=== PATIENT | male | born 1965 | race Caucasian/White ===

== ENCOUNTER 2017-12-27 13:12 | Emergency (ER) | payer SELFPAY ==
[~2017-12-27] VITALS: Ht 188 cm; Wt 106.5 kg
[~2017-12-27 13:12] MED LIST: CARV3.122 PO; FURO-93 PO; FURO40TA6 PO; HYDR-3240 PO; LISI2.5T PO; LORA-446 PO; POTA10TA31 PO; SPIR25TA3 PO; WARF7.5T6 PO
[2017-12-27 13:20] VITALS: BP 150/100
[2017-12-27] MEDS ORDERED: DIPHENHYDRAMINE 50 MG CAPSULE ONE (13:43)
[2017-12-27] MEDS ORDERED: DIPHENHYDRAMINE 25 MG CAPSULE PO ONE (14:00)
== END 2017-12-27 14:42 | disposition home or self-care (01) ==
LOC: ED 14:20
DX: L20.9 Atopic dermatitis, unspecified (principal); I50.9 Heart failure, unspecified
CPT/HCPCS: 93005; 99283; Q0163

== ENCOUNTER 2018-07-26 09:50 | Emergency (ER) | payer MEDICAID ==
[~2018-07-26] VITALS: Ht 185.4 cm; Wt 98.0 kg
[~2018-07-26 09:50] MED LIST changes: +CAPT12.52 PO; +NITR0.4T SL; +SPIR25TA PO; -SPIR25TA3 PO; +SPIR25TA5 PO; +WARF7.5T46 PO; -WARF7.5T6 PO
[2018-07-26 10:00] VITALS: BP 120/83
[2018-07-26] MEDS ORDERED: FAMOTIDINE 20 MG TABLET ONE (10:25)
[2018-07-26] MEDS ORDERED: FAMOTIDINE 20 MG TABLET PO ONE (10:30)
[2018-07-26 10:32] LABS: BASOPHILS # (AUTO) 0.08 x10^3/uL (0-0.1); BASOPHILS % (AUTO) 1 % (0-1); EOSINOPHILS # (AUTO) 0.24 x10^3/uL (0-0.4); EOSINOPHILS % (AUTO) 3 % (1-7); LYMPHOCYTES # (AUTO) 2.02 x10^3/uL (1-3.4); LYMPHOCYTES % (AUTO) 22 % (22-44); MD NO; MEAN CORPUSCULAR HEMOGLOBIN 31.9 pg (27.5-34.5); MEAN CORPUSCULAR HGB CONC 34.7 g/dL (33.2-36.2); MEAN CORPUSCULAR VOLUME 91.9 fL (81-97); MEAN PLATELET VOLUME 9.5 fL (7.4-10.4); MONOCYTES # (AUTO) 0.82 x10^3/uL (0.2-0.8); MONOCYTES % (AUTO) 9 % (2-9); NEUTROPHILS # (AUTO) 6.09 x10^3/uL (1.8-6.8); NEUTROPHILS % (AUTO) 66 % (42-75); PLATELET COUNT 225 x10^3/uL (130-400); RED BLOOD COUNT 5.72 x10^6/uL (4.38-5.82); RED CELL DISTRIBUTION WIDTH 13.2 % (9.4-14.8)
[2018-07-26 10:44] LABS: ALBUMIN 4.1 g/dL (3.4-5.0); ANION GAP 8 mmol/L (5-15); CALCIUM 8.9 mg/dL (8.5-10.1); CHLORIDE 112 mmol/L (98-107); CREATININE 1.04 mg/dL (0.7-1.3)
[2018-07-26 10:47] LABS: TROPONIN I < 0.015 ng/mL (0.000-0.045)
== END 2018-07-26 11:15 | disposition home or self-care (01) ==
LOC: ED 11:08
DX: L20.84 Intrinsic (allergic) eczema (principal); I50.9 Heart failure, unspecified; F17.200 Nicotine dependence, unspecified, uncomplicated
CPT/HCPCS: 36415; 71045; 80048; 82040; 83880; 84484; 85025; 93005; 99285; J7512; Q0177

== ENCOUNTER 2018-11-01 05:14 | Inpatient (IN) | payer MEDICAID ==
[~2018-11-01] VITALS: Ht 188 cm; Wt 98.3 kg
[2018-11-01] MEDS ORDERED: SODIUM CHLORIDE FLUSH 10ML SYR IVF ONE (05:30)
[2018-11-01] MEDS ORDERED: morphine SULFATE 10 MG/ML, 1ML IVPush ONE (05:30)
--- NOTE | 2018-11-01 05:32 | NUR ---
PT IN HOSPITAL GOWN. PT HAS ESTABLISHED IV ACCESS PER EMS. PT COMES IN WITH C/O CHEST PAIN IN LEFT CHEST WITH RADIATION TO LEFT SHOULDER. PT ON CARDIAC AND VITALS MONITORS. BILAT BEDRAILS UP. WILL CONTINUE TO MONITOR
[2018-11-01] MEDS ORDERED: METOPROLOL 1 MG/ML, 5ML ONE (05:36)
[2018-11-01] MEDS ORDERED: MORPHINE SULFATE 4 MG/ML, 1ML ONE (05:36)
[2018-11-01 05:55] LABS: BASOPHILS # (AUTO) 0.04 x10^3/uL (0-0.1); BASOPHILS % (AUTO) 0 % (0-1); EOSINOPHILS # (AUTO) 0.14 x10^3/uL (0-0.4); EOSINOPHILS % (AUTO) 1 % (1-7); LYMPHOCYTES # (AUTO) 2.36 x10^3/uL (1-3.4); LYMPHOCYTES % (AUTO) 22 % (22-44); MD NO; MEAN CORPUSCULAR HEMOGLOBIN 33.1 pg (27.5-34.5); MEAN CORPUSCULAR HGB CONC 34.4 g/dL (33.2-36.2); MEAN CORPUSCULAR VOLUME 96.2 fL (81-97); MEAN PLATELET VOLUME 9.1 fL (7.4-10.4); MONOCYTES % (AUTO) 9 % (2-9); NEUTROPHILS # (AUTO) 7.36 x10^3/uL (1.8-6.8); NEUTROPHILS % (AUTO) 68 % (42-75); PLATELET COUNT 186 x10^3/uL (130-400); RED BLOOD COUNT 5.25 x10^6/uL (4.38-5.82); RED CELL DISTRIBUTION WIDTH 15.8 % (9.4-14.8)
[2018-11-01] MEDS ORDERED: METOPROLOL 1 MG/ML, 5ML IVPush PRN (06:00)
[2018-11-01 06:07] LABS: ALBUMIN 3.5 g/dL (3.4-5.0); ANION GAP 7 mmol/L (5-15); CALCIUM 8.9 mg/dL (8.5-10.1); CHLORIDE 110 mmol/L (98-107)
[2018-11-01 06:12] LABS: ALANINE AMINOTRANSFERASE 38 U/L (12-78); ALKALINE PHOSPHATASE 51 U/L (45-117); BILIRUBIN,TOTAL 1.5 mg/dL (0.2-1.0); CREATININE 0.83 mg/dL (0.7-1.3); TOTAL PROTEIN 6.4 g/dL (6.4-8.2); TROPONIN I < 0.015 ng/mL (0.000-0.045)
[2018-11-01 06:13] LABS: D-DIMER 0.2 ug/mlFEU (0.00-0.52); INTERNATIONAL NORMALIZED RATIO 1.07 (0.93-1.1); PROTHROMBIN TIME 11.3 Seconds (9.6-11.5)
--- NOTE | 2018-11-01 06:53 | NUR ---
REPORT TO PRATIK BARRIOS
--- NOTE | 2018-11-01 06:54 | NUR ---
RECEIVED REPORT FROM [email or web address]. PT UPRIGHT ON GURNEY AWAKE & CALM, RESPONDS APPROP TO STAFF, NAD, COMFORT MEASURES PROVIDED, CALL LIGHT WITHIN REACH,
--- NOTE | 2018-11-01 06:57 | NUR ---
REPORT GIVEN TO JAS BARRIOS FOR 5TH FLOOR ROOM 509.
[2018-11-01] MEDS ORDERED: ENOXAPARIN 100 MG/ML SQ ONE (07:00)
[2018-11-01 07:41] VITALS: BP 110/86
[2018-11-01] MEDS ORDERED: HEPARIN 5,000 UNITS/ML, 1ML SQ SCH (08:00)
[2018-11-01] MEDS ORDERED: NITROGLYCERIN 0.4 MG/SPRAY SL PRN (08:00)
[2018-11-01] MEDS ORDERED: ONDANSETRON 2MG/ML, 2ML IVPush PRN (08:00)
[2018-11-01] MEDS ORDERED: DOCUSATE 100 MG CAPSULE PO PRN ×2 (08:00→17:30)
[2018-11-01] MEDS ORDERED: NITROGLYCERIN 0.4 MG BOTTLE (25 TABS) SL PRN (08:00)
[2018-11-01] MEDS ORDERED: ONDANSETRON ODT 4 MG PO PRN (08:00)
[2018-11-01] MEDS ORDERED: hydrALAzine 20 MG/ML, 1ML IVPush PRN (08:00)
[2018-11-01 08:35] LABS: FREE T4 (FREE THYROXINE) 1.15 ng/dL (0.76-1.46); TROPONIN I < 0.015 ng/mL (0.000-0.045)
[2018-11-01] MEDS ORDERED: CAPT12.52 PO (08:38)
[2018-11-01] MEDS ORDERED: Enoxaparin 1 mg/kg protocol SQ SCH (09:30)
[2018-11-01] MEDS: CARVEDILOL 3.125 MG TABLET PO SCH ×2 (09:43→15:21)
[2018-11-01] MEDS ORDERED: ENOXAPARIN 100 MG/ML SQ SCH ×2 (10:00→21:30)
[2018-11-01] MEDS: ACETAMINOPHEN 325 MG TABLET PO PRN (10:20)
[2018-11-01 10:41] LABS: MICROSCOPIC AUTO
[2018-11-01 10:42] LABS: CULTURE INDICATED? NO
[2018-11-01 10:52] LABS: AMPHETAMINE SCREEN, URINE Negative (Negative); BARBITURATE SCREEN, URINE Negative (Negative); BENZODIAZEPINE SCREEN, URINE Negative (Negative); CANNABINOID SCREEN, URINE Positive (Negative); COCAINE SCREEN, URINE Negative (Negative); METHADONE SCREEN, URINE Negative (Negative); OPIATE SCREEN, URINE Positive (Negative)
[2018-11-01] MEDS: MORPHINE SULFATE 4 MG/ML, 1ML IVPush PRN ×2 (12:46→17:09)
[2018-11-01 13:10] VITALS: BP 99/73
[2018-11-01 13:55] LABS: TROPONIN I < 0.015 ng/mL (0.000-0.045)
[2018-11-01 15:00] VITALS: BP 104/58
[2018-11-01] MEDS: VERAPAMIL 2.5 MG/ML, 2ML IVPush PRN ×2 (15:26→16:38)
[2018-11-01] MEDS ORDERED: KETOROLAC 30 MG/1 ML IVPush SCH (16:00)
[2018-11-01 16:05] LABS: TROPONIN I < 0.015 ng/mL (0.000-0.045)
[2018-11-01] MEDS: KETOROLAC 30 MG/1 ML IVPush PRN ×2 (16:11→22:11)
[2018-11-01] MEDS ORDERED: OMNIPAQUE 350 MG/ML, 100ML BOTTLE ONE (17:01)
[2018-11-01] MEDS ORDERED: MAALOX/HYOSCYAMINE/LIDOCAINE 45 ML BTL PO ONE (17:30)
[2018-11-01] MEDS ORDERED: LORazepam 2 MG/ML, 1ML IV PRN ×5 (17:30)
[2018-11-01] MEDS ORDERED: LORazepam 0.5MG TABLET PO PRN (17:30)
[2018-11-01] MEDS ORDERED: IBUPROFEN 600 MG TABLET PO PRN (17:30)
[2018-11-01] MEDS ORDERED: ALUMINUM/MAG/SIMETHICONE 30 ML UDC PO PRN (17:30)
[2018-11-01] MEDS ORDERED: LORazepam 1MG TABLET PO PRN ×4 (17:30)
[2018-11-01] MEDS ORDERED: ONDANSETRON 2MG/ML, 2ML IV PRN (17:30)
[2018-11-01] MEDS: SUCRALFATE 1 GM/10 ML UDC PO SCH ×2 (17:44→20:01)
[2018-11-01] MEDS: OXYcodone/APAP 10/325MG TABLET PO PRN (17:44)
[2018-11-01 20:00] VITALS: BP 119/83
[2018-11-01] MEDS: LIDODERM 5% PATCH TD PRN (20:00)
[2018-11-01] MEDS: CAPTOPRIL 12.5 MG TABLET PO SCH (20:01)
[2018-11-02 00:45] VITALS: BP 100/69
[2018-11-02] MEDS: OXYcodone/APAP 10/325MG TABLET PO PRN ×2 (01:00→08:33)
[2018-11-02 05:02] LABS: BASOPHILS # (AUTO) 0.05 x10^3/uL (0-0.1); BASOPHILS % (AUTO) 1 % (0-1); EOSINOPHILS # (AUTO) 0.08 x10^3/uL (0-0.4); EOSINOPHILS % (AUTO) 1 % (1-7); LYMPHOCYTES # (AUTO) 2.17 x10^3/uL (1-3.4); LYMPHOCYTES % (AUTO) 20 % (22-44); MD NO; MEAN CORPUSCULAR HEMOGLOBIN 32.8 pg (27.5-34.5); MEAN CORPUSCULAR HGB CONC 34.4 g/dL (33.2-36.2); MEAN CORPUSCULAR VOLUME 95.3 fL (81-97); MEAN PLATELET VOLUME 9.6 fL (7.4-10.4); MONOCYTES # (AUTO) 1.05 x10^3/uL (0.2-0.8); MONOCYTES % (AUTO) 10 % (2-9); NEUTROPHILS # (AUTO) 7.54 x10^3/uL (1.8-6.8); NEUTROPHILS % (AUTO) 69 % (42-75); PLATELET COUNT 170 x10^3/uL (130-400); RED BLOOD COUNT 5.12 x10^6/uL (4.38-5.82); RED CELL DISTRIBUTION WIDTH 15.3 % (9.4-14.8)
[2018-11-02 05:15] LABS: ANION GAP 8 mmol/L (5-15); CALCIUM 8.4 mg/dL (8.5-10.1); CHLORIDE 107 mmol/L (98-107)
[2018-11-02 05:17] LABS: CREATININE 0.95 mg/dL (0.7-1.3)
[2018-11-02] MEDS: KETOROLAC 30 MG/1 ML IVPush PRN (06:25)
[2018-11-02 08:13] VITALS: BP 95/66
[2018-11-02] MEDS: SUCRALFATE 1 GM/10 ML UDC PO SCH ×4 (08:32→20:46)
[2018-11-02] MEDS: MULTIVITAMINS/MINERALS TABLET PO SCH (08:33)
[2018-11-02] MEDS: PANTOPROZOLE 40MG TABLET PO SCH (08:33)
[2018-11-02] MEDS: CARVEDILOL 3.125 MG TABLET PO SCH ×2 (08:33→17:47)
[2018-11-02] MEDS: SPIRONOLACTONE 25 MG TABLET PO SCH (08:33)
[2018-11-02] MEDS: FUROSEMIDE 40 MG TABLET PO SCH (08:35)
[2018-11-02] MEDS: APIXABAN 5 MG TABLET PO SCH ×2 (08:46→20:46)
[2018-11-02] MEDS: CAPTOPRIL 12.5 MG TABLET PO SCH ×2 (08:47→20:47)
[2018-11-02] MEDS ORDERED: PROPOFOL 10 MG/ML, 20ML ONE (12:14)
[2018-11-02] MEDS: DIGOXIN 0.125 MG TABLET PO SCH (13:16)
[2018-11-02 14:09] VITALS: BP 92/63
[2018-11-02] MEDS ORDERED: SODIUM CHLORIDE 0.9%, 250ML IVBOLUS ONE (15:30)
[2018-11-02] MEDS: IBUPROFEN 800 MG TABLET PO PRN ×2 (15:37→20:46)
[2018-11-02 19:32] VITALS: BP 107/75
[2018-11-02] MEDS: ACETAMINOPHEN 325 MG TABLET PO PRN (20:46)
[2018-11-03 01:15] VITALS: BP 96/65
[2018-11-03] MEDS: LIDODERM 5% PATCH TD PRN (05:12)
[2018-11-03] MEDS: IBUPROFEN 800 MG TABLET PO PRN ×2 (05:15→21:49)
[2018-11-03] MEDS: PANTOPROZOLE 40MG TABLET PO SCH (05:15)
[2018-11-03] MEDS: ACETAMINOPHEN 325 MG TABLET PO PRN ×2 (05:15→21:49)
[2018-11-03 07:40] VITALS: BP 94/63
[2018-11-03] MEDS: SUCRALFATE 1 GM/10 ML UDC PO SCH ×4 (08:31→21:48)
[2018-11-03] MEDS: CARVEDILOL 3.125 MG TABLET PO SCH ×2 (08:32→18:02)
[2018-11-03] MEDS: APIXABAN 5 MG TABLET PO SCH ×2 (08:32→21:49)
[2018-11-03] MEDS: MULTIVITAMINS/MINERALS TABLET PO SCH (08:32)
[2018-11-03] MEDS: DIGOXIN 0.125 MG TABLET PO SCH (08:33)
[2018-11-03] MEDS: SPIRONOLACTONE 25 MG TABLET PO SCH (08:33)
[2018-11-03] MEDS: FUROSEMIDE 40 MG TABLET PO SCH (08:33)
[2018-11-03] MEDS: CAPTOPRIL 12.5 MG TABLET PO SCH ×2 (09:00→21:50)
[2018-11-03 10:07] LABS: ANION GAP 6 mmol/L (5-15); CALCIUM 8.7 mg/dL (8.5-10.1); CHLORIDE 110 mmol/L (98-107); CREATININE 1.04 mg/dL (0.7-1.3)
[2018-11-03 15:28] VITALS: BP 101/76
[2018-11-03 18:03] VITALS: BP 124/89
[2018-11-03] MEDS: VERAPAMIL 2.5 MG/ML, 2ML IVPush PRN (18:24)
[2018-11-03 19:29] VITALS: BP 110/85
[2018-11-04 01:36] VITALS: BP 102/60
[2018-11-04 06:38] VITALS: BP 105/70
[2018-11-04] MEDS: CARVEDILOL 3.125 MG TABLET PO SCH (06:38)
[2018-11-04] MEDS: PANTOPROZOLE 40MG TABLET PO SCH (06:38)
[2018-11-04] MEDS: SPIRONOLACTONE 25 MG TABLET PO SCH (08:27)
[2018-11-04] MEDS: SUCRALFATE 1 GM/10 ML UDC PO SCH ×2 (08:27→12:44)
[2018-11-04] MEDS: APIXABAN 5 MG TABLET PO SCH (08:28)
[2018-11-04] MEDS: DIGOXIN 0.125 MG TABLET PO SCH (08:28)
[2018-11-04] MEDS: CAPTOPRIL 12.5 MG TABLET PO SCH (08:28)
[2018-11-04] MEDS: FUROSEMIDE 40 MG TABLET PO SCH (08:29)
[2018-11-04] MEDS: MULTIVITAMINS/MINERALS TABLET PO SCH (08:30)
[2018-11-04] MEDS: IBUPROFEN 800 MG TABLET PO PRN (09:04)
[2018-11-04] MEDS: ACETAMINOPHEN 325 MG TABLET PO PRN (09:05)
[2018-11-04 09:26] VITALS: BP 110/78
[2018-11-04] MEDS ORDERED: SUCR1ORA5 PO (13:41)
[2018-11-04] MEDS ORDERED: CARV6.2512 PO (13:41)
[2018-11-04] MEDS ORDERED: PANT40TA5 PO (13:41)
[2018-11-04] MEDS ORDERED: ONDA4TAB13 PO (13:41)
[2018-11-04] MEDS ORDERED: NITR0.4T SL (13:41)
[2018-11-04] MEDS ORDERED: FURO40TA6 PO (13:41)
[2018-11-04] MEDS ORDERED: DOCU-131 PO (13:41)
[2018-11-04] MEDS ORDERED: CAPT12.52 PO (13:41)
[2018-11-04] MEDS ORDERED: SPIR25TA PO (13:41)
[2018-11-04] MEDS ORDERED: LIDO700A20 TD (13:41)
[2018-11-04] MEDS ORDERED: APIX5TAB PO (13:41)
[2018-11-04] MEDS ORDERED: IBUP-1223 PO (13:41)
[2018-11-04] MEDS ORDERED: CARVEDILOL 6.25 MG TABLET PO SCH (18:00)
== END 2018-11-04 17:08 | disposition home or self-care (01) | DRG 308 ==
LOC: ED 06:22 → EDIP 06:28 → 5SO 07:13 → DCLOUNGE 11-04 16:32
PROVIDERS: ADMIT Family Medicine; ATTEND Internal Medicine
PROC: 5A2204Z Restoration of Cardiac Rhythm, Single (ICD-10-PCS; principal; 2018-11-03)
DX: I48.91 Unspecified atrial fibrillation (principal); I50.23 Acute on chronic systolic (congestive) heart failure; F10.239 Alcohol dependence with withdrawal, unspecified; F12.90 Cannabis use, unspecified, uncomplicated; F17.210 Nicotine dependence, cigarettes, uncomplicated; I95.9 Hypotension, unspecified; K21.9 Gastro-esophageal reflux disease without esophagitis; I51.3 Intracardiac thrombosis, not elsewhere classified; I42.6 Alcoholic cardiomyopathy; Z79.01 Long term (current) use of anticoagulants; Z79.899 Other long term (current) drug therapy; Z80.3 Family history of malignant neoplasm of breast
CPT/HCPCS: 36415; 71045; 71275; 80048; 80053; 80307; 81001; 83735; 83880; 84439; 84443; 84484; 85025; 85379; 85610; 85730; 93005; 93306; 93312; 93321; 93325; 96374; 96375; 99285; G0378; J1650; J1885; J2405; J2704; Q9967; J2270; J7050

== ENCOUNTER 2018-11-29 11:53 | Outpatient (CLI) | payer MEDICAID ==
[~2018-11-29 11:53] MED LIST changes: +APIX5TAB PO; +CARV6.2512 PO; +DOCU-131 PO; +IBUP-1223 PO; +LIDO700A20 TD; +ONDA4TAB13 PO; +PANT40TA5 PO; +SUCR1ORA5 PO
[2018-11-29] MEDS ORDERED: REGADENOSON 0.4 MG/5 ML SYRINGE ONE (12:33)
== END 2018-11-29 23:59 | disposition home or self-care (01) ==
LOC: CFH 11:53
PROVIDERS: ATTEND Nurse Practitioner Family
DX: I50.23 Acute on chronic systolic (congestive) heart failure (principal); R07.9 Chest pain, unspecified
CPT/HCPCS: 78452; A9502; J2785

== ENCOUNTER 2018-12-03 05:54 | Day surgery (SDC) | payer MEDICAID, MEDICARE ==
[~2018-12-03] VITALS: Ht 188 cm; Wt 97.3 kg
[2018-12-03] MEDS ORDERED: HYDR28.423 TP (06:32)
[2018-12-03 06:35] VITALS: BP 83/65
[2018-12-03 06:47] LABS: BASOPHILS # (AUTO) 0.09 x10^3/uL (0-0.1); BASOPHILS % (AUTO) 1 % (0-1); EOSINOPHILS # (AUTO) 0.37 x10^3/uL (0-0.4); EOSINOPHILS % (AUTO) 3 % (1-7); LYMPHOCYTES # (AUTO) 2.72 x10^3/uL (1-3.4); LYMPHOCYTES % (AUTO) 24 % (22-44); MD NO; MEAN CORPUSCULAR HEMOGLOBIN 32.5 pg (27.5-34.5); MEAN CORPUSCULAR VOLUME 95.6 fL (81-97); MEAN PLATELET VOLUME 9.5 fL (7.4-10.4); MONOCYTES # (AUTO) 0.89 x10^3/uL (0.2-0.8); MONOCYTES % (AUTO) 8 % (2-9); NEUTROPHILS # (AUTO) 7.11 x10^3/uL (1.8-6.8); NEUTROPHILS % (AUTO) 64 % (42-75); PLATELET COUNT 179 x10^3/uL (130-400); RED BLOOD COUNT 5.36 x10^6/uL (4.38-5.82); RED CELL DISTRIBUTION WIDTH 13.8 % (9.4-14.8)
[2018-12-03 06:52] LABS: ANION GAP 6 mmol/L (5-15); CALCIUM 8.6 mg/dL (8.5-10.1); CHLORIDE 114 mmol/L (98-107); CREATININE 1.05 mg/dL (0.7-1.3)
[2018-12-03] MEDS ORDERED: ONDANSETRON 2MG/ML, 2ML ONE (07:17)
[2018-12-03] MEDS ORDERED: ONDANSETRON 2MG/ML, 2ML IVPush ONE (07:30)
[2018-12-03] MEDS ORDERED: PROPOFOL 10 MG/ML, 20ML ONE (07:31)
[2018-12-03] MEDS ORDERED: DIPHENHYDRAMINE 50 MG/ML, 1ML ONE (08:04)
[2018-12-03] MEDS ORDERED: DIPHENHYDRAMINE 50 MG/ML, 1ML IVPush PRN (08:30)
[2018-12-03] MEDS ORDERED: DEXAMETHASONE 4 MG/ML, 1ML ONE (08:37)
[2018-12-03] MEDS ORDERED: FAMOTIDINE 20 MG/2 ML IVPush ONE (09:00)
[2018-12-03] MEDS ORDERED: DEXAMETHASONE 4 MG/ML, 1ML IVPush ONE (09:00)
[2018-12-03] MEDS ORDERED: LORazepam 2 MG/ML, 1ML ONE (09:09)
[2018-12-03] MEDS: LORazepam 2 MG/ML, 1ML IVPush PRN ×2 (09:13→09:29)
[2018-12-03] MEDS ORDERED: FUROSEMIDE 40 MG/4 ML ONE (09:26)
[2018-12-03] MEDS ORDERED: FUROSEMIDE 20 MG/2 ML IV ONE (09:30)
== END 2018-12-03 12:37 | disposition home or self-care (01) ==
LOC: CACL 05:54
PROVIDERS: ATTEND Internal Medicine Cardiovascular Disease
DX: I48.91 Unspecified atrial fibrillation (principal); I42.9 Cardiomyopathy, unspecified
CPT/HCPCS: 36415; 71045; 80048; 85025; 92960; J1100; J1200; J1940; J2060; J2405; J2704; J3490

== ENCOUNTER 2018-12-05 05:58 | Inpatient (IN) | payer MEDICARE, MEDICAID ==
[~2018-12-05] VITALS: Ht 188 cm; Wt 97.7 kg
[~2018-12-05 05:58] MED LIST changes: +HYDR28.423 TP
--- NOTE | 2018-12-05 06:46 | NUR ---
PT HERE FOR 10/10 CHEST PAIN THAT STARTED LAST NIGHT. PT HAS HX OF AFIB AND CHF. PT SAYS PAIN IS CONSTANT AND NOT RELEIVED BY ANYTHING. PT ALSO COMPLAINING OF SOB. PT PLACED ON 2 L O2 FOR COMFORT. CALL LIGHT IN REACH.
--- NOTE | 2018-12-05 06:55 | NUR ---
REPORT RECEIVED, CARE ASSUMED. PT SITTING UP ON FARAZ, SR PER MONITOR, AUTO BP AND PULSE OX IN PLACE. PT WITH C/O NAUSEA "DRY HEAVING" PT PROVIDED WITH WARM BLANKET. WAITING FOR ORDERS.
--- NOTE | 2018-12-05 07:31 | NUR ---
PT USING URINAL FREQUENTLY, TOOK HOME MEDS INCLUDING LASIX AT 0500. CONT SR PER MONITOR. PORTABLE CXR IN PROCESS. CONT TO MONITOR.
[2018-12-05 07:53] LABS: MEAN CORPUSCULAR HEMOGLOBIN 32.3 pg (27.5-34.5); MEAN CORPUSCULAR HGB CONC 33.9 g/dL (33.2-36.2); MEAN CORPUSCULAR VOLUME 95.4 fL (81-97); MEAN PLATELET VOLUME 9.1 fL (7.4-10.4); PLATELET COUNT 173 x10^3/uL (130-400); RED BLOOD COUNT 5.17 x10^6/uL (4.38-5.82); RED CELL DISTRIBUTION WIDTH 13.4 % (9.4-14.8)
[2018-12-05 08:00] LABS: ALANINE AMINOTRANSFERASE 40 U/L (12-78); ANION GAP 4 mmol/L (5-15); CALCIUM 8.7 mg/dL (8.5-10.1); CHLORIDE 106 mmol/L (98-107); CREATININE 1.24 mg/dL (0.7-1.3)
[2018-12-05 08:04] LABS: ALKALINE PHOSPHATASE 55 U/L (45-117); BILIRUBIN,TOTAL 2.8 mg/dL (0.2-1.0); TOTAL PROTEIN 6.6 g/dL (6.4-8.2); TROPONIN I < 0.015 ng/mL (0.000-0.045)
[2018-12-05 08:16] LABS: BASOPHILS # (AUTO) 0.07 x10^3/uL (0-0.1); BASOPHILS % (AUTO) 1 % (0-1); EOSINOPHILS # (AUTO) 0.14 x10^3/uL (0-0.4); EOSINOPHILS % (AUTO) 1 % (1-7); LYMPHOCYTES # (AUTO) 1.76 x10^3/uL (1-3.4); LYMPHOCYTES % (AUTO) 12 % (22-44); MD SCAN; MONOCYTES # (AUTO) 1.14 x10^3/uL (0.2-0.8); MONOCYTES % (AUTO) 8 % (2-9); NEUTROPHILS # (AUTO) 11.42 x10^3/uL (1.8-6.8); NEUTROPHILS % (AUTO) 79 % (42-75)
[2018-12-05] MEDS ORDERED: FUROSEMIDE 40 MG/4 ML IV ONE (08:30)
[2018-12-05] MEDS ORDERED: FUROSEMIDE 40 MG/4 ML ONE (08:41)
[2018-12-05] MEDS ORDERED: POTASSIUM CHLORIDE 20 MEQ TAB.ER.PRT ONE (08:41)
[2018-12-05] MEDS ORDERED: ONDANSETRON 2MG/ML, 2ML ONE (08:41)
--- NOTE | 2018-12-05 08:56 | NUR ---
REPORT TO MARIO BARRIOS. PT AT BEDSIDE USING URINAL. PRIOR TO IV LASIX, PT HAD UOP OF APPROX 1200.
[2018-12-05] MEDS ORDERED: POTASSIUM CHLORIDE 20 MEQ TAB.ER.PRT PO ONE (09:00)
[2018-12-05] MEDS ORDERED: ONDANSETRON 2MG/ML, 2ML IVPush ONE (09:00)
--- NOTE | 2018-12-05 09:00 | NUR ---
ASSUMED CARE. PT RESTING WITH EYES CLOSED. C/O CONTINUED CP. PT NOTED TO DIURES 1000 ML URINE. CONTINUE TO MONITOR
[2018-12-05 09:08] LABS: D-DIMER < 0.19 ug/mlFEU (0.00-0.52); INTERNATIONAL NORMALIZED RATIO 1.09 (0.93-1.1); PARTIAL THROMBOPLASTIN TIME 29 Seconds (25-31); PROTHROMBIN TIME 11.4 Seconds (9.6-11.5)
[2018-12-05] MEDS ORDERED: HYDROcodone/APAP 5/325 TABLET PO ONE (09:30)
[2018-12-05] MEDS ORDERED: DOCUSATE 100 MG CAPSULE PO PRN (10:00)
[2018-12-05] MEDS ORDERED: NITROGLYCERIN 0.4 MG BOTTLE (25 TABS) SL PRN (10:00)
[2018-12-05] MEDS ORDERED: ONDANSETRON 2MG/ML, 2ML IVPush PRN (10:00)
[2018-12-05] MEDS ORDERED: POLYETHYLENE GLYCOL 17 GM PACKET PO PRN (10:00)
[2018-12-05] MEDS ORDERED: morphine SULFATE 10 MG/ML, 1ML IVPush PRN (10:00)
[2018-12-05] MEDS ORDERED: BISACODYL 10 MG SUPP PR PRN (10:00)
[2018-12-05] MEDS ORDERED: LABETALOL 5MG/ML, 20ML IVPush PRN (10:00)
[2018-12-05] MEDS ORDERED: HYDROCORTISONE CRM 1%, 30GM TP PRN (10:00)
--- NOTE | 2018-12-05 10:43 | NUR ---
RPT TO NATHANAEL RICH TO BE TRANSPORTED
--- NOTE | 2018-12-05 10:52 | NUR ---
ADDTIONAL 700 ML URINE OUTPUT NOTED
[2018-12-05 11:34] VITALS: BP 95/67
[2018-12-05] MEDS: ACETAMINOPHEN 325 MG TABLET PO PRN ×2 (12:53→17:36)
[2018-12-05 13:41] LABS: TROPONIN I < 0.015 ng/mL (0.000-0.045)
[2018-12-05 17:02] VITALS: BP 105/75
[2018-12-05] MEDS: CARVEDILOL 6.25 MG TABLET PO SCH (17:33)
[2018-12-05] MEDS: FUROSEMIDE 40 MG/4 ML IV SCH (17:33)
[2018-12-05] MEDS: POTASSIUM CHLORIDE 20 MEQ TAB.ER.PRT PO SCH (17:33)
[2018-12-05 19:19] LABS: TROPONIN I < 0.015 ng/mL (0.000-0.045)
[2018-12-05 19:53] VITALS: BP 102/68
[2018-12-05] MEDS: SODIUM CHLORIDE FLUSH 10ML SYR IVF SCH (20:40)
[2018-12-05] MEDS: APIXABAN 5 MG TABLET PO SCH (20:41)
[2018-12-05] MEDS: CAPTOPRIL 12.5 MG TABLET PO SCH (20:41)
[2018-12-06 01:15] VITALS: BP 99/64
[2018-12-06 04:56] LABS: BASOPHILS # (AUTO) 0.14 x10^3/uL (0-0.1); BASOPHILS % (AUTO) 1 % (0-1); EOSINOPHILS # (AUTO) 0.12 x10^3/uL (0-0.4); EOSINOPHILS % (AUTO) 1 % (1-7); LYMPHOCYTES # (AUTO) 2.12 x10^3/uL (1-3.4); LYMPHOCYTES % (AUTO) 16 % (22-44); MD NO; MEAN CORPUSCULAR HEMOGLOBIN 32.7 pg (27.5-34.5); MEAN CORPUSCULAR HGB CONC 34.7 g/dL (33.2-36.2); MEAN CORPUSCULAR VOLUME 94.3 fL (81-97); MEAN PLATELET VOLUME 9.8 fL (7.4-10.4); MONOCYTES # (AUTO) 1.28 x10^3/uL (0.2-0.8); MONOCYTES % (AUTO) 10 % (2-9); NEUTROPHILS # (AUTO) 9.53 x10^3/uL (1.8-6.8); NEUTROPHILS % (AUTO) 72 % (42-75); PLATELET COUNT 162 x10^3/uL (130-400); RED BLOOD COUNT 5.47 x10^6/uL (4.38-5.82); RED CELL DISTRIBUTION WIDTH 13.6 % (9.4-14.8)
[2018-12-06 05:10] LABS: ALANINE AMINOTRANSFERASE 31 U/L (12-78); ALBUMIN 3.8 g/dL (3.4-5.0); ANION GAP 7 mmol/L (5-15); CALCIUM 8.7 mg/dL (8.5-10.1); CHLORIDE 108 mmol/L (98-107); CHOLESTEROL, TOTAL 188 mg/dL (140-239); CREATININE 0.96 mg/dL (0.7-1.3)
[2018-12-06 05:12] LABS: ALKALINE PHOSPHATASE 58 U/L (45-117); BILIRUBIN,TOTAL 4.3 mg/dL (0.2-1.0); CHOL/HDL RATIO 4.3; HDL CHOL % 23 % (26-37); HDL CHOLESTEROL (DIRECT) 44 mg/dL (40-60); LDL CHOLESTEROL,CALCULATED 113 mg/dL (54-169); LDL/HDL RATIO 2.6 (0.5-3.0); TOTAL PROTEIN 6.8 g/dL (6.4-8.2); TRIGLYCERIDES 156 mg/dL (50-200); VLDL CHOLESTEROL 31 mg/dL (0-25)
[2018-12-06] MEDS ORDERED: ASPIRIN 325 MG TABLET EC PO SCH (06:00)
[2018-12-06 06:10] VITALS: BP 101/71
[2018-12-06] MEDS: CARVEDILOL 6.25 MG TABLET PO SCH (06:11)
[2018-12-06 07:15] VITALS: BP_SYST 110; BP_SYST 90; BP_DIAS 56; BP_DIAS 75
[2018-12-06] MEDS: FUROSEMIDE 40 MG/4 ML IV SCH (07:41)
[2018-12-06] MEDS: CAPTOPRIL 12.5 MG TABLET PO SCH (07:41)
[2018-12-06] MEDS: APIXABAN 5 MG TABLET PO SCH (07:41)
[2018-12-06] MEDS: POTASSIUM CHLORIDE 20 MEQ TAB.ER.PRT PO SCH (07:41)
[2018-12-06] MEDS: SODIUM CHLORIDE FLUSH 10ML SYR IVF SCH (07:42)
[2018-12-06] MEDS: ACETAMINOPHEN 325 MG TABLET PO PRN ×2 (07:49→11:46)
[2018-12-06] MEDS ORDERED: SPIRONOLACTONE 25 MG TABLET PO SCH (09:00)
[2018-12-06] MEDS ORDERED: REGADENOSON 0.4 MG/5 ML SYRINGE ONE (10:01)
[2018-12-06 12:29] VITALS: BP 96/70
== END 2018-12-06 16:30 | disposition home or self-care (01) | DRG 291 ==
LOC: ED 09:39 → EDIP 09:51 → 5SO 11:11 → DCLOUNGE 12-06 16:10
PROVIDERS: ADMIT Hospitalist; ATTEND Hospitalist
DX: I50.23 Acute on chronic systolic (congestive) heart failure (principal); R65.11 Systemic inflammatory response syndrome (SIRS) of non-infectious origin with acute organ dysfunction; R17 Unspecified jaundice; I42.0 Dilated cardiomyopathy; R07.89 Other chest pain; D72.829 Elevated white blood cell count, unspecified; I48.0 Paroxysmal atrial fibrillation; Z86.711 Personal history of pulmonary embolism; Z87.891 Personal history of nicotine dependence; Z80.9 Family history of malignant neoplasm, unspecified
CPT/HCPCS: 36415; 71045; 78452; 80053; 80061; 83735; 83880; 84484; 85025; 85379; 85610; 85730; 93005; 93017; 96374; 99285; G0378; J1940; J2405; J2785; A9502; C9898

== ENCOUNTER 2019-04-21 09:30 | Outpatient (CLI) | payer MEDICAID, OTHER ==
[~2019-04-21 09:30] MED LIST changes: -NITR0.4T SL; +NITR0.4T41 SL
== END 2019-04-21 23:59 | disposition home or self-care (01) ==
LOC: CVU 09:30
PROVIDERS: ATTEND Internal Medicine Cardiovascular Disease
DX: I08.3 Combined rheumatic disorders of mitral, aortic and tricuspid valves (principal)
CPT/HCPCS: 0399T; 93306

== ENCOUNTER 2020-01-15 05:26 | Emergency (ER) | payer OTHER ==
[~2020-01-15] VITALS: Ht 185.4 cm; Wt 94.5 kg
[2020-01-15] MEDS ORDERED: LISI5TAB7 PO (05:48)
[2020-01-15] MEDS ORDERED: RIVA20TA PO (05:48)
--- NOTE | 2020-01-15 05:53 | NUR ---
THIS IS A 54 YO MALE COMING IN FOR SUDDEN ONSET SHORTNESS OF BREATH AND STERNAL CHEST PAIN STARTING AT 0200. PAIN RADIATED TO LEFT SHOULDER AND BACK, RATED 9/10 DESCRIBED DULL PRESSURE. PATIENT SPEAKING IN 4-5 WORD SENTENCES, RESPIRATIONS EVEN AND SLIGHTLY LABORED. LUNG SOUNDS DIMINISHED THROUGHOUT. PATIENT HAS HX OF CHF, AND RECENT DX OF AFIB. BILATERAL RADIAL PULSES STRONG BUT UNEVEN. ALL MONITORING IN PLACE, NSR ON MONITOR AT THIS TIME AT 89 BPM, 97% ON RA. CALL LIGHT IN REACH. EKG DONE IN TRIAGE
[2020-01-15] MEDS ORDERED: ASPIRIN 81 MG TABLET CHEW ONE (06:05)
[2020-01-15] MEDS ORDERED: NITROGLYCERIN OINT 2%, 1GM TP ONE ×2 (06:06→06:30)
--- NOTE | 2020-01-15 06:15 | NUR ---
PATIENT MEDICATED PER EMAR. NITRO PASTE APPLIED
[2020-01-15] MEDS ORDERED: ASPIRIN 81 MG TABLET CHEW PO ONE (06:30)
[2020-01-15 06:32] LABS: BASOPHILS # (AUTO) 0.04 x10^3/uL (0-0.1); BASOPHILS % (AUTO) 0 % (0-1); EOSINOPHILS # (AUTO) 0.07 x10^3/uL (0-0.4); EOSINOPHILS % (AUTO) 1 % (1-7); LYMPHOCYTES # (AUTO) 2.34 x10^3/uL (1-3.4); LYMPHOCYTES % (AUTO) 24 % (22-44); MD NO; MEAN CORPUSCULAR HEMOGLOBIN 34.2 pg (27.5-34.5); MEAN CORPUSCULAR HGB CONC 33.9 g/dL (33.2-36.2); MEAN CORPUSCULAR VOLUME 100.8 fL (81-97); MONOCYTES # (AUTO) 0.83 x10^3/uL (0.2-0.8); MONOCYTES % (AUTO) 9 % (2-9); NEUTROPHILS # (AUTO) 6.35 x10^3/uL (1.8-6.8); NEUTROPHILS % (AUTO) 66 % (42-75); PLATELET COUNT 218 x10^3/uL (130-400); RED BLOOD COUNT 5.12 x10^6/uL (4.38-5.82); RED CELL DISTRIBUTION WIDTH 13.7 % (9.4-14.8)
--- NOTE | 2020-01-15 06:33 | NUR ---
PATIENT REPORTS NEW ONSET NAUSEA, ERP NOTIFIED
[2020-01-15 06:42] LABS: ALANINE AMINOTRANSFERASE 69 U/L (12-78); ALBUMIN 3.8 g/dL (3.4-5.0); ANION GAP 10 mmol/L (5-15); CALCIUM 8.9 mg/dL (8.5-10.1); CHLORIDE 108 mmol/L (98-107); CREATININE 0.84 mg/dL (0.7-1.3)
[2020-01-15] MEDS ORDERED: ONDANSETRON 2MG/ML, 2ML ONE (06:44)
[2020-01-15 06:46] LABS: ALKALINE PHOSPHATASE 53 U/L (45-117); BILIRUBIN,TOTAL 1.8 mg/dL (0.2-1.0); TOTAL PROTEIN 6.9 g/dL (6.4-8.2); TROPONIN I < 0.015 ng/mL (0.000-0.045)
--- NOTE | 2020-01-15 06:53 | NUR ---
PATIENT MEDICATED PER EMAR
--- NOTE | 2020-01-15 06:59 | NUR ---
REPORT GIVEN TO SOPHIE MARTIN. PLAN OF CARE DISCUSSED
[2020-01-15] MEDS ORDERED: ONDANSETRON 2MG/ML, 2ML IVPush ONE (07:00)
--- NOTE | 2020-01-15 07:00 | NUR ---
ASSUMED CARE. PT STATES HE WAKES UP AT NIGHT FEELING LIKE HE CAN'T BREATHE. NO SOB AT THIS TIME
--- NOTE | 2020-01-15 07:58 | NUR ---
PT AWAITING RE-EVAL. NO DISTRESS
--- NOTE | 2020-01-15 09:48 | NUR ---
PT AWAITING REPEAT TROPONIN. CONTINUE TO MONITOR
--- NOTE | 2020-01-15 10:09 | NUR ---
instructor technical training at bedside to collect repeat trop. Pt resting in bed,
[2020-01-15 10:12] VITALS: BP 92/67
--- NOTE | 2020-01-15 10:12 | NUR ---
Pt states CP still present but better than it was. Pt watching tv. Pt provided crackers and juice per request, denies other needs.
[2020-01-15 10:31] LABS: TROPONIN I < 0.015 ng/mL (0.000-0.045)
== END 2020-01-15 10:57 | disposition home or self-care (01) ==
LOC: ED 06:04
DX: R07.89 Other chest pain (principal); I50.9 Heart failure, unspecified; I25.10 Atherosclerotic heart disease of native coronary artery without angina pectoris; R94.31 Abnormal electrocardiogram [ECG] [EKG]; Z86.711 Personal history of pulmonary embolism; Z79.01 Long term (current) use of anticoagulants
CPT/HCPCS: 36415; 71045; 80053; 83615; 83880; 84484; 85025; 93005; 99285; J2405

== ENCOUNTER 2020-03-24 01:17 | Inpatient (IN) | payer OTHER ==
[~2020-03-24] VITALS: Ht 185.4 cm; Wt 100.0 kg
[~2020-03-24 01:17] MED LIST changes: +LISI5TAB7 PO; -PANT40TA5 PO; +PANT40TA6 PO; +RIVA20TA PO
--- NOTE | 2020-03-24 01:36 | NUR ---
PT TO ED WITH C/O SHORTNESS OF BREATH AND CHEST PAIN FOR THE PAST 36 HOURS. REPORTS CANNOT CATCH HIS BREATH WHEN TRYING TO GO TO SLEEP. REPORTS HX OF CHF AND COMPLIANT WITH MEDICATIONS. DR. FERRERA - TRANSLATOR/INTERPRETER
[2020-03-24] MEDS ORDERED: DILTIAZEM 5 MG/ML, 5ML IVPush ONE (02:00)
[2020-03-24] MEDS ORDERED: DILTIAZEM 5 MG/ML, 5ML ONE (02:00)
--- NOTE | 2020-03-24 02:10 | NUR ---
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 HR IRREGULAR AND AFIB WITH RATE 104-125. 2 LARGE BORE IV'S STARTED.
[2020-03-24 02:16] LABS: BASOPHILS # (AUTO) 0.03 x10^3/uL (0-0.1); BASOPHILS % (AUTO) 0 % (0-1); EOSINOPHILS # (AUTO) 0.13 x10^3/uL (0-0.4); EOSINOPHILS % (AUTO) 1 % (1-7); LYMPHOCYTES # (AUTO) 3.24 x10^3/uL (1-3.4); LYMPHOCYTES % (AUTO) 28 % (22-44); MD NO; MEAN CORPUSCULAR HEMOGLOBIN 33.7 pg (27.5-34.5); MEAN CORPUSCULAR HGB CONC 34.3 g/dL (33.2-36.2); MEAN PLATELET VOLUME 9.3 fL (7.4-10.4); MONOCYTES # (AUTO) 1.02 x10^3/uL (0.2-0.8); MONOCYTES % (AUTO) 9 % (2-9); NEUTROPHILS # (AUTO) 6.98 x10^3/uL (1.8-6.8); NEUTROPHILS % (AUTO) 61 % (42-75); PLATELET COUNT 189 x10^3/uL (130-400); RED BLOOD COUNT 4.39 x10^6/uL (4.38-5.82); RED CELL DISTRIBUTION WIDTH 13.8 % (9.4-14.8)
[2020-03-24 02:27] LABS: ALBUMIN 3.7 g/dL (3.4-5.0); ANION GAP 9 mmol/L (5-15); CALCIUM 8.8 mg/dL (8.5-10.1); CHLORIDE 101 mmol/L (98-107)
[2020-03-24 02:33] LABS: ALANINE AMINOTRANSFERASE 70 U/L (12-78); ALKALINE PHOSPHATASE 55 U/L (45-117); BILIRUBIN,TOTAL 1.5 mg/dL (0.2-1.0); CREATININE 1.08 mg/dL (0.7-1.3); TROPONIN I < 0.015 ng/mL (0.000-0.045)
--- NOTE | 2020-03-24 02:35 | NUR ---
BREAK RN: NOTIFED MD OF BP OF 83/56. MD DOES NO WANT FLUIDS STARTED BACK UP AT THIS TIME. C/O CHEST PAIN 05/14. MD TO ORDER ASPIRIN
[2020-03-24] MEDS ORDERED: ASPIRIN 81 MG TABLET CHEW ONE (02:38)
--- NOTE | 2020-03-24 02:41 | NUR ---
PATIENT MEDICATED PER EMAR, TOLERATED WELL
[2020-03-24] MEDS ORDERED: ASPIRIN 81 MG TABLET CHEW PO ONE (03:00)
[2020-03-24] MEDS ORDERED: morphine SULFATE 10 MG/ML, 1ML IVPush PRN (04:00)
[2020-03-24] MEDS ORDERED: hydrALAzine 20 MG/ML, 1ML IVPush PRN (04:00)
[2020-03-24 05:28] VITALS: BP 83/66
[2020-03-24] MEDS ORDERED: NITROGLYCERIN 0.4 MG/SPRAY SL PRN (05:30)
[2020-03-24] MEDS ORDERED: NITROGLYCERIN 0.4 MG BOTTLE (25 TABS) SL PRN (05:30)
[2020-03-24] MEDS ORDERED: CARVEDILOL 6.25 MG TABLET PO SCH (06:00)
[2020-03-24 08:26] VITALS: BP 90/63
[2020-03-24 08:35] LABS: TROPONIN I < 0.015 ng/mL (0.000-0.045)
[2020-03-24] MEDS ORDERED: LISINOPRIL 5 MG TABLET PO SCH (09:00)
[2020-03-24] MEDS ORDERED: SPIRONOLACTONE 25 MG TABLET PO SCH (09:00)
[2020-03-24] MEDS: RIVAROXABAN 20 MG TABLET PO SCH (09:11)
[2020-03-24 14:32] VITALS: BP 92/53
[2020-03-24] MEDS: METOPROLOL TARTRATE 25 MG TAB PO SCH ×2 (14:34→17:20)
[2020-03-24 17:18] VITALS: BP 105/83
[2020-03-24] MEDS: LIDODERM 5% PATCH TD SCH (17:22)
[2020-03-24] MEDS ORDERED: METOPROLOL TARTRATE 25 MG TAB PO SCH ×2 (18:00→20:30)
[2020-03-24] MEDS: ONDANSETRON 2MG/ML, 2ML IVPush PRN (18:06)
[2020-03-24] MEDS ORDERED: KETOROLAC 30 MG/1 ML IVPush SCH (20:30)
[2020-03-24 20:48] VITALS: BP 103/71
[2020-03-25] VITALS (12 sets, daily range): BP systolic 94–118; BP diastolic 46–83
[2020-03-25] MEDS ORDERED: LORazepam 1MG TABLET PO ONE (01:30)
[2020-03-25] MEDS: ONDANSETRON 2MG/ML, 2ML IVPush PRN ×2 (04:09→12:14)
[2020-03-25] MEDS: LIDODERM REMOVE PATCH NOTE XX SCH (05:15)
[2020-03-25 05:48] LABS: BASOPHILS # (AUTO) 0.04 x10^3/uL (0-0.1); BASOPHILS % (AUTO) 0 % (0-1); EOSINOPHILS # (AUTO) 0.06 x10^3/uL (0-0.4); EOSINOPHILS % (AUTO) 1 % (1-7); LYMPHOCYTES # (AUTO) 2.07 x10^3/uL (1-3.4); LYMPHOCYTES % (AUTO) 17 % (22-44); MD NO; MEAN CORPUSCULAR HEMOGLOBIN 33.3 pg (27.5-34.5); MEAN CORPUSCULAR HGB CONC 33.7 g/dL (33.2-36.2); MEAN PLATELET VOLUME 9.5 fL (7.4-10.4); MONOCYTES # (AUTO) 1.42 x10^3/uL (0.2-0.8); MONOCYTES % (AUTO) 11 % (2-9); NEUTROPHILS # (AUTO) 8.81 x10^3/uL (1.8-6.8); NEUTROPHILS % (AUTO) 71 % (42-75); PLATELET COUNT 173 x10^3/uL (130-400); RED BLOOD COUNT 4.64 x10^6/uL (4.38-5.82)
[2020-03-25 05:56] LABS: ANION GAP 8 mmol/L (5-15); CHLORIDE 104 mmol/L (98-107); CREATININE 1.19 mg/dL (0.7-1.3)
[2020-03-25] MEDS ORDERED: METOPROLOL TARTRATE 25 MG TAB PO SCH ×2 (06:00→14:00)
[2020-03-25 06:14] LABS: TROPONIN I < 0.015 ng/mL (0.000-0.045)
--- NOTE | 2020-03-25 08:10 | NUR ---
JESSIKA IBRAHIM E - Fall Risk Medication(s) present and receiving anticoagulants.
[2020-03-25] MEDS: ERGOCALCIFEROL 50,000 UNIT CAPSULE PO SCH (08:29)
[2020-03-25] MEDS: RIVAROXABAN 20 MG TABLET PO SCH (08:30)
[2020-03-25] MEDS ORDERED: AMIODARONE 150 MG in DEXTROSE 5% 100 ML IV ONE (09:30)
[2020-03-25] MEDS ORDERED: FILTER 0.22 MICRON IV PRN (10:00)
[2020-03-25] MEDS: SPIRONOLACTONE 25 MG TABLET PO SCH (10:27)
[2020-03-25] MEDS: AMIODARONE 450 MG in DEXTROSE 5% 241 ML IV PRN ×2 (10:29→17:59)
[2020-03-25] MEDS ORDERED: LORazepam 2 MG/ML, 1ML IVPush PRN ×2 (13:00→19:00)
[2020-03-25] MEDS: ACETAMINOPHEN 325 MG TABLET PO PRN (14:46)
[2020-03-25] MEDS: LORazepam 2 MG/ML, 1ML IV PRN ×2 (14:46→18:40)
[2020-03-25] MEDS ORDERED: LORazepam 1MG TABLET PO PRN ×4 (15:00)
[2020-03-25] MEDS ORDERED: LORazepam 0.5MG TABLET PO PRN (15:00)
[2020-03-25] MEDS ORDERED: LORazepam 2 MG/ML, 1ML IV PRN ×3 (15:00)
[2020-03-25] MEDS: LIDODERM 5% PATCH TD SCH (17:27)
[2020-03-25] MEDS: CARVEDILOL 6.25 MG TABLET PO SCH (17:30)
[2020-03-25] MEDS ORDERED: CARVEDILOL 6.25 MG TABLET PO SCH (18:00)
[2020-03-26] MEDS: LORazepam 2 MG/ML, 1ML IV PRN ×2 (00:20→03:45)
[2020-03-26 01:00] VITALS: BP 108/80
[2020-03-26] MEDS ORDERED: ZIPRASIDONE 20 MG INJ IM ONE (01:00)
[2020-03-26] MEDS ORDERED: HALOPERIDOL 5 MG/ML IV ONE (04:30)
[2020-03-26] MEDS ORDERED: PHENOBARBITAL ETOH DETOX PER PHARMACY MC PRN (05:30)
[2020-03-26] MEDS ORDERED: PHENOBARBITAL SODIUM 800 MG in SODIUM CHLORIDE 0.9% 50 ML IV ONE (05:30)
[2020-03-26] MEDS ORDERED: AMIODARONE 150 MG in DEXTROSE 5% 100 ML IV ONE (08:00)
[2020-03-26] MEDS ORDERED: PHENOBARBITAL SODIUM IV ONE (08:30)
[2020-03-26] MEDS ORDERED: SODIUM CHLORIDE 0.9% IV ONE (08:30)
[2020-03-26] MEDS: THIAMINE 200 MG in SODIUM CHLORIDE 0.9% 50 ML IV SCH (08:59)
[2020-03-26] MEDS: LIDODERM REMOVE PATCH NOTE XX SCH (08:59)
[2020-03-26] MEDS ORDERED: PHARMACY MAY ADJ FOR RENAL FX MC SCH (11:30)
[2020-03-26] MEDS: PANTOPRAZOLE 40 MG IV IV SCH (12:53)
[2020-03-26] MEDS: NICOTINE 14MG/24 HR PATCH.TD24 TD SCH (12:53)
[2020-03-26] MEDS: RIVAROXABAN 20 MG TABLET PO SCH (13:31)
[2020-03-26] MEDS: SPIRONOLACTONE 25 MG TABLET PO SCH (13:31)
[2020-03-26] MEDS: CARVEDILOL 6.25 MG TABLET PO SCH ×2 (13:31→18:00)
[2020-03-26] MEDS: ACETAMINOPHEN 325 MG TABLET PO PRN ×2 (13:31→19:30)
[2020-03-26] MEDS ORDERED: ETOMIDATE 20 MG/10 ML ONE (16:41)
[2020-03-26] MEDS ORDERED: PROPOFOL 10 MG/ML, 100ML IV ONE (16:41)
[2020-03-26] MEDS ORDERED: MIDAZOLAM 1 MG/ML, 5ML ONE (16:41)
[2020-03-26] MEDS: LIDODERM 5% PATCH TD SCH (18:18)
[2020-03-26] MEDS: AMIODARONE 450 MG in DEXTROSE 5% 241 ML IV PRN (18:18)
[2020-03-26] MEDS: PROPOFOL 100 ML IV PRN (19:07)
[2020-03-26] MEDS ORDERED: SODIUM CHLORIDE 0.9%, 500ML IVBOLUS ONE (22:30)
[2020-03-27 04:00] VITALS: BP 85/36
[2020-03-27 04:44] LABS: BASOPHILS # (AUTO) 0.03 x10^3/uL (0-0.1); BASOPHILS % (AUTO) 0 % (0-1); EOSINOPHILS # (AUTO) 0.05 x10^3/uL (0-0.4); EOSINOPHILS % (AUTO) 1 % (1-7); LYMPHOCYTES # (AUTO) 1.95 x10^3/uL (1-3.4); LYMPHOCYTES % (AUTO) 18 % (22-44); MD NO; MEAN CORPUSCULAR HEMOGLOBIN 33.6 pg (27.5-34.5); MEAN CORPUSCULAR HGB CONC 33.9 g/dL (33.2-36.2); MEAN PLATELET VOLUME 9.9 fL (7.4-10.4); MONOCYTES # (AUTO) 1.42 x10^3/uL (0.2-0.8); MONOCYTES % (AUTO) 13 % (2-9); NEUTROPHILS # (AUTO) 7.41 x10^3/uL (1.8-6.8); NEUTROPHILS % (AUTO) 68 % (42-75); PLATELET COUNT 166 x10^3/uL (130-400); RED BLOOD COUNT 3.84 x10^6/uL (4.38-5.82); RED CELL DISTRIBUTION WIDTH 14.3 % (9.4-14.8)
[2020-03-27 04:53] LABS: ANION GAP 11 mmol/L (5-15); CHLORIDE 109 mmol/L (98-107); CREATININE 1.07 mg/dL (0.7-1.3)
[2020-03-27 04:55] LABS: CALCIUM 8.4 mg/dL (8.5-10.1)
[2020-03-27] MEDS: CARVEDILOL 6.25 MG TABLET PO SCH ×2 (06:00→21:00)
[2020-03-27] MEDS: SPIRONOLACTONE 25 MG TABLET PO SCH (08:30)
[2020-03-27] MEDS: PANTOPRAZOLE 40 MG IV IV SCH (08:30)
[2020-03-27] MEDS: RIVAROXABAN 20 MG TABLET PO SCH (08:30)
[2020-03-27] MEDS: AMIODARONE 450 MG in DEXTROSE 5% 241 ML IV PRN (08:32)
[2020-03-27] MEDS: PROPOFOL 100 ML IV PRN ×3 (08:34→21:22)
[2020-03-27] MEDS: THIAMINE 200 MG in SODIUM CHLORIDE 0.9% 50 ML IV SCH (08:38)
[2020-03-27] MEDS: LIDODERM REMOVE PATCH NOTE XX SCH (09:00)
[2020-03-27] MEDS ORDERED: FUROSEMIDE 40 MG/4 ML IV ONE (09:30)
[2020-03-27] MEDS: NICOTINE 14MG/24 HR PATCH.TD24 TD SCH (10:45)
[2020-03-27] MEDS ORDERED: FUROSEMIDE 20 MG/2 ML IV ONE (17:00)
[2020-03-27] MEDS: LIDODERM 5% PATCH TD SCH (17:53)
[2020-03-27] MEDS ORDERED: FUROSEMIDE 20 MG/2 ML ONE (21:20)
[2020-03-27] MEDS: AMIODARONE 200 MG TABLET PO SCH (21:23)
[2020-03-28] MEDS: PROPOFOL 100 ML IV PRN (02:53)
[2020-03-28 04:00] VITALS: BP 86/60
[2020-03-28 04:33] LABS: BASOPHILS # (AUTO) 0.06 x10^3/uL (0-0.1); BASOPHILS % (AUTO) 1 % (0-1); EOSINOPHILS # (AUTO) 0.03 x10^3/uL (0-0.4); EOSINOPHILS % (AUTO) 0 % (1-7); LYMPHOCYTES % (AUTO) 12 % (22-44); MD NO; MEAN CORPUSCULAR HEMOGLOBIN 33.6 pg (27.5-34.5); MEAN CORPUSCULAR HGB CONC 33.6 g/dL (33.2-36.2); MONOCYTES # (AUTO) 1.66 x10^3/uL (0.2-0.8); MONOCYTES % (AUTO) 16 % (2-9); NEUTROPHILS # (AUTO) 7.19 x10^3/uL (1.8-6.8); NEUTROPHILS % (AUTO) 71 % (42-75); PLATELET COUNT 208 x10^3/uL (130-400); RED BLOOD COUNT 3.88 x10^6/uL (4.38-5.82); RED CELL DISTRIBUTION WIDTH 14.4 % (9.4-14.8)
[2020-03-28 04:39] LABS: ALANINE AMINOTRANSFERASE 68 U/L (12-78); ALBUMIN 2.9 g/dL (3.4-5.0); ANION GAP 7 mmol/L (5-15); CALCIUM 8.4 mg/dL (8.5-10.1); CHLORIDE 107 mmol/L (98-107); CREATININE 1.11 mg/dL (0.7-1.3)
[2020-03-28 04:41] LABS: ALKALINE PHOSPHATASE 49 U/L (45-117); BILIRUBIN,TOTAL 1.8 mg/dL (0.2-1.0); TOTAL PROTEIN 6.5 g/dL (6.4-8.2)
[2020-03-28] MEDS: CARVEDILOL 6.25 MG TABLET PO SCH (06:00)
[2020-03-28] MEDS: PANTOPRAZOLE 40 MG IV IV SCH (08:33)
[2020-03-28] MEDS: POTASSIUM CHLORIDE 10% 40 MEQ/30 ML UDC PO SCH ×2 (08:33→20:54)
[2020-03-28] MEDS: SPIRONOLACTONE 25 MG TABLET PO SCH (08:37)
[2020-03-28] MEDS: RIVAROXABAN 20 MG TABLET PO SCH (08:38)
[2020-03-28] MEDS: AMIODARONE 200 MG TABLET PO SCH ×2 (08:38→20:47)
[2020-03-28] MEDS: LIDODERM REMOVE PATCH NOTE XX SCH (08:38)
[2020-03-28] MEDS ORDERED: FUROSEMIDE 40 MG/4 ML IV ONE (09:00)
[2020-03-28] MEDS: THIAMINE 200 MG in SODIUM CHLORIDE 0.9% 50 ML IV SCH (10:44)
[2020-03-28] MEDS: CARVEDILOL 3.125 MG TABLET PO SCH (17:08)
[2020-03-28] MEDS: NICOTINE 21 MG/24 HR PATCH.TD24 TD SCH (17:08)
[2020-03-28] MEDS: LIDODERM 5% PATCH TD SCH (17:08)
[2020-03-29 04:00] VITALS: BP 83/62
[2020-03-29 04:38] LABS: MEAN CORPUSCULAR HEMOGLOBIN 33.4 pg (27.5-34.5); MEAN CORPUSCULAR HGB CONC 34.1 g/dL (33.2-36.2); MEAN PLATELET VOLUME 9.4 fL (7.4-10.4); PLATELET COUNT 216 x10^3/uL (130-400); RED CELL DISTRIBUTION WIDTH 13.8 % (9.4-14.8)
[2020-03-29 04:47] LABS: ANION GAP 9 mmol/L (5-15); CHLORIDE 107 mmol/L (98-107); CREATININE 0.92 mg/dL (0.7-1.3)
[2020-03-29 04:56] LABS: BASOPHILS # (AUTO) 0.04 x10^3/uL (0-0.1); BASOPHILS % (AUTO) 0 % (0-1); EOSINOPHILS # (AUTO) 0.05 x10^3/uL (0-0.4); EOSINOPHILS % (AUTO) 0 % (1-7); LYMPHOCYTES # (AUTO) 1.29 x10^3/uL (1-3.4); LYMPHOCYTES % (AUTO) 12 % (22-44); MD SCAN; MONOCYTES # (AUTO) 1.54 x10^3/uL (0.2-0.8); MONOCYTES % (AUTO) 14 % (2-9); NEUTROPHILS # (AUTO) 8.02 x10^3/uL (1.8-6.8); NEUTROPHILS % (AUTO) 73 % (42-75)
[2020-03-29] MEDS: CARVEDILOL 3.125 MG TABLET PO SCH (06:00)
[2020-03-29 07:30] VITALS: BP 90/55
[2020-03-29] MEDS: AMIODARONE 200 MG TABLET PO SCH ×3 (08:56→20:02)
[2020-03-29] MEDS: LIDODERM REMOVE PATCH NOTE XX SCH (08:56)
[2020-03-29] MEDS: NICOTINE 21 MG/24 HR PATCH.TD24 TD SCH (08:56)
[2020-03-29] MEDS: RIVAROXABAN 20 MG TABLET PO SCH (08:56)
[2020-03-29] MEDS: SPIRONOLACTONE 25 MG TABLET PO SCH (08:56)
[2020-03-29] MEDS: THIAMINE 200 MG in SODIUM CHLORIDE 0.9% 50 ML IV SCH (09:02)
[2020-03-29] MEDS: ACETAMINOPHEN 325 MG TABLET PO PRN (09:03)
[2020-03-29] MEDS ORDERED: DOCUSATE 100 MG CAPSULE ONE (09:23)
[2020-03-29] MEDS ORDERED: DOCUSATE 100 MG CAPSULE PO PRN (09:30)
[2020-03-29 14:23] VITALS: BP 109/68
[2020-03-29] MEDS: LIDODERM 5% PATCH TD SCH (18:28)
[2020-03-29 19:38] VITALS: BP 106/67
[2020-03-29] MEDS: BISACODYL 10 MG SUPP PR SCH (20:02)
[2020-03-29] MEDS: POLYETHYLENE GLYCOL 17 GM PACKET PO SCH (20:02)
[2020-03-29] MEDS: SENNA/DOCUSATE TABLET PO SCH (20:02)
[2020-03-30 00:27] VITALS: BP 98/60
[2020-03-30 06:05] LABS: BASOPHILS # (AUTO) 0.05 x10^3/uL (0-0.1); BASOPHILS % (AUTO) 1 % (0-1); EOSINOPHILS # (AUTO) 0.16 x10^3/uL (0-0.4); EOSINOPHILS % (AUTO) 2 % (1-7); LYMPHOCYTES # (AUTO) 1.58 x10^3/uL (1-3.4); LYMPHOCYTES % (AUTO) 16 % (22-44); MD NO; MEAN CORPUSCULAR HEMOGLOBIN 33.4 pg (27.5-34.5); MEAN CORPUSCULAR HGB CONC 33.7 g/dL (33.2-36.2); MEAN PLATELET VOLUME 9.4 fL (7.4-10.4); MONOCYTES # (AUTO) 1.21 x10^3/uL (0.2-0.8); MONOCYTES % (AUTO) 12 % (2-9); NEUTROPHILS # (AUTO) 7.06 x10^3/uL (1.8-6.8); NEUTROPHILS % (AUTO) 70 % (42-75); PLATELET COUNT 257 x10^3/uL (130-400); RED BLOOD COUNT 3.99 x10^6/uL (4.38-5.82); RED CELL DISTRIBUTION WIDTH 13.9 % (9.4-14.8)
[2020-03-30] MEDS: RIVAROXABAN 20 MG TABLET PO SCH (08:26)
[2020-03-30 08:29] VITALS: BP 98/71
[2020-03-30] MEDS: AMIODARONE 200 MG TABLET PO SCH ×2 (08:29→20:36)
[2020-03-30] MEDS: SPIRONOLACTONE 25 MG TABLET PO SCH (08:29)
[2020-03-30] MEDS: NICOTINE 21 MG/24 HR PATCH.TD24 TD SCH (08:33)
[2020-03-30] MEDS: POLYETHYLENE GLYCOL 17 GM PACKET PO SCH (08:46)
[2020-03-30] MEDS: SENNA/DOCUSATE TABLET PO SCH (08:46)
[2020-03-30] MEDS: BISACODYL 10 MG SUPP PR SCH (08:46)
[2020-03-30] MEDS: LIDODERM REMOVE PATCH NOTE XX SCH (08:46)
[2020-03-30] MEDS: THIAMINE 200 MG in SODIUM CHLORIDE 0.9% 50 ML IV SCH (10:13)
[2020-03-30] MEDS ORDERED: TRAZODONE 50MG TABLET PO PRN (11:00)
[2020-03-30] MEDS ORDERED: AMIODARONE 150 MG in DEXTROSE 5% 100 ML IV ONE ×2 (12:00→14:30)
[2020-03-30] MEDS ORDERED: FUROSEMIDE 40 MG/4 ML IV ONE (12:00)
[2020-03-30] MEDS: PHENOL THROAT SPRAY BOTTLE MM PRN ×3 (12:21→21:57)
[2020-03-30] MEDS: FILTER 0.22 MICRON IV PRN ×2 (12:28→15:07)
[2020-03-30 13:58] VITALS: BP 105/76
[2020-03-30 15:36] VITALS: BP 103/72
[2020-03-30] MEDS: LIDODERM 5% PATCH TD SCH (17:43)
[2020-03-30] MEDS: ACETAMINOPHEN 325 MG TABLET PO PRN (17:43)
[2020-03-30 19:26] VITALS: BP 100/69
[2020-03-30 20:34] VITALS: BP 96/71
[2020-03-30] MEDS: METOPROLOL SUCCINATE 25 MG TAB.ER.24H PO SCH (20:36)
[2020-03-31] MEDS: PHENOL THROAT SPRAY BOTTLE MM PRN ×4 (00:17→21:11)
[2020-03-31 00:19] VITALS: BP 100/61
[2020-03-31] MEDS: TEMAZEPAM 15 MG CAPSULE PO PRN ×2 (00:39→20:08)
[2020-03-31 07:03] LABS: MEAN CORPUSCULAR HEMOGLOBIN 33.1 pg (27.5-34.5); MEAN CORPUSCULAR HGB CONC 33.2 g/dL (33.2-36.2); MEAN PLATELET VOLUME 8.6 fL (7.4-10.4); PLATELET COUNT 324 x10^3/uL (130-400); RED BLOOD COUNT 4.13 x10^6/uL (4.38-5.82); RED CELL DISTRIBUTION WIDTH 13.9 % (9.4-14.8)
[2020-03-31 07:12] LABS: ANION GAP 7 mmol/L (5-15); CALCIUM 8.9 mg/dL (8.5-10.1); CHLORIDE 104 mmol/L (98-107); CREATININE 0.88 mg/dL (0.7-1.3)
[2020-03-31 07:20] VITALS: BP 99/70
[2020-03-31 07:37] LABS: BASOPHILS # (AUTO) 0.08 x10^3/uL (0-0.1); BASOPHILS % (AUTO) 1 % (0-1); EOSINOPHILS % (AUTO) 2 % (1-7); LYMPHOCYTES # (AUTO) 1.51 x10^3/uL (1-3.4); LYMPHOCYTES % (AUTO) 13 % (22-44); MD SCAN; MONOCYTES # (AUTO) 1.24 x10^3/uL (0.2-0.8); MONOCYTES % (AUTO) 11 % (2-9); NEUTROPHILS # (AUTO) 8.45 x10^3/uL (1.8-6.8); NEUTROPHILS % (AUTO) 74 % (42-75)
[2020-03-31] MEDS: RIVAROXABAN 20 MG TABLET PO SCH (08:00)
[2020-03-31] MEDS: SPIRONOLACTONE 25 MG TABLET PO SCH (08:53)
[2020-03-31] MEDS: METOPROLOL SUCCINATE 25 MG TAB.ER.24H PO SCH ×2 (08:53→20:08)
[2020-03-31] MEDS: AMIODARONE 200 MG TABLET PO SCH ×2 (08:53→20:07)
[2020-03-31] MEDS: SENNA/DOCUSATE TABLET PO SCH (08:53)
[2020-03-31] MEDS: FUROSEMIDE 40 MG/4 ML IV SCH (08:54)
[2020-03-31] MEDS: NICOTINE 21 MG/24 HR PATCH.TD24 TD SCH (08:54)
[2020-03-31] MEDS: BISACODYL 10 MG SUPP PR SCH (09:00)
[2020-03-31] MEDS: LIDODERM REMOVE PATCH NOTE XX SCH (09:00)
[2020-03-31] MEDS: POLYETHYLENE GLYCOL 17 GM PACKET PO SCH (09:00)
[2020-03-31] MEDS ORDERED: DIGOXIN 0.25 MG/ML, 2ML IVPush ONE (11:00)
[2020-03-31 11:12] VITALS: BP 95/65
[2020-03-31] MEDS: GUAIFENESIN/DM 200-20MG, 10ML UDC PO PRN ×3 (11:12→20:07)
[2020-03-31 12:52] VITALS: BP 99/70
[2020-03-31] MEDS: LIDODERM 5% PATCH TD SCH (16:26)
[2020-03-31 19:40] VITALS: BP 101/71
[2020-04-01] MEDS: PHENOL THROAT SPRAY BOTTLE MM PRN ×4 (01:17→20:46)
[2020-04-01] MEDS: GUAIFENESIN/DM 200-20MG, 10ML UDC PO PRN ×3 (01:17→20:46)
[2020-04-01 01:23] VITALS: BP 100/60
[2020-04-01 05:49] LABS: BASOPHILS # (AUTO) 0.07 x10^3/uL (0-0.1); BASOPHILS % (AUTO) 1 % (0-1); EOSINOPHILS # (AUTO) 0.22 x10^3/uL (0-0.4); EOSINOPHILS % (AUTO) 2 % (1-7); LYMPHOCYTES # (AUTO) 1.82 x10^3/uL (1-3.4); LYMPHOCYTES % (AUTO) 16 % (22-44); MD NO; MEAN CORPUSCULAR HEMOGLOBIN 32.9 pg (27.5-34.5); MEAN CORPUSCULAR HGB CONC 33.5 g/dL (33.2-36.2); MEAN PLATELET VOLUME 8.5 fL (7.4-10.4); MONOCYTES # (AUTO) 1.38 x10^3/uL (0.2-0.8); MONOCYTES % (AUTO) 12 % (2-9); NEUTROPHILS # (AUTO) 7.93 x10^3/uL (1.8-6.8); NEUTROPHILS % (AUTO) 70 % (42-75); PLATELET COUNT 387 x10^3/uL (130-400); RED BLOOD COUNT 4.34 x10^6/uL (4.38-5.82); RED CELL DISTRIBUTION WIDTH 14.2 % (9.4-14.8)
[2020-04-01 05:58] LABS: ANION GAP 7 mmol/L (5-15); CALCIUM 9.1 mg/dL (8.5-10.1); CHLORIDE 106 mmol/L (98-107)
[2020-04-01 05:59] LABS: CREATININE 0.79 mg/dL (0.7-1.3)
[2020-04-01 06:26] VITALS: BP 98/64
[2020-04-01] MEDS: BISACODYL 10 MG SUPP PR SCH (07:58)
[2020-04-01] MEDS: RIVAROXABAN 20 MG TABLET PO SCH (08:00)
[2020-04-01] MEDS: ERGOCALCIFEROL 50,000 UNIT CAPSULE PO SCH (08:08)
[2020-04-01] MEDS: SPIRONOLACTONE 25 MG TABLET PO SCH (08:09)
[2020-04-01] MEDS: AMIODARONE 200 MG TABLET PO SCH ×2 (08:09→20:45)
[2020-04-01] MEDS: NICOTINE 21 MG/24 HR PATCH.TD24 TD SCH (08:10)
[2020-04-01] MEDS: METOPROLOL SUCCINATE 25 MG TAB.ER.24H PO SCH ×2 (08:10→21:43)
[2020-04-01] MEDS: FUROSEMIDE 40 MG/4 ML IV SCH (08:11)
[2020-04-01] MEDS: POLYETHYLENE GLYCOL 17 GM PACKET PO SCH (08:11)
[2020-04-01] MEDS: SENNA/DOCUSATE TABLET PO SCH (08:11)
[2020-04-01] MEDS: LIDODERM REMOVE PATCH NOTE XX SCH (09:00)
[2020-04-01] MEDS ORDERED: DIGOXIN 0.25 MG TABLET PO SCH (09:00)
[2020-04-01] MEDS ORDERED: POTASSIUM CHLORIDE 20 MEQ TAB.ER.PRT PO ONE (09:00)
[2020-04-01] MEDS ORDERED: DIGOXIN 0.125 MG TABLET ONE (09:15)
[2020-04-01] MEDS: ACETAMINOPHEN 325 MG TABLET PO PRN (09:41)
[2020-04-01] MEDS: LISINOPRIL 5 MG TABLET PO SCH ×2 (09:42→20:46)
[2020-04-01 12:35] VITALS: BP 107/81
[2020-04-01] MEDS: LIDODERM 5% PATCH TD SCH (16:30)
[2020-04-01 19:36] VITALS: BP 104/67
[2020-04-01 20:43] VITALS: BP 104/74
[2020-04-01] MEDS: TEMAZEPAM 15 MG CAPSULE PO PRN (20:46)
[2020-04-01 21:39] VITALS: BP 101/66
[2020-04-02 02:03] VITALS: BP 98/64
[2020-04-02 06:01] LABS: BASOPHILS % (AUTO) 1 % (0-1); EOSINOPHILS # (AUTO) 0.27 x10^3/uL (0-0.4); EOSINOPHILS % (AUTO) 2 % (1-7); LYMPHOCYTES # (AUTO) 2.21 x10^3/uL (1-3.4); LYMPHOCYTES % (AUTO) 19 % (22-44); MD NO; MEAN CORPUSCULAR HEMOGLOBIN 32.9 pg (27.5-34.5); MEAN CORPUSCULAR HGB CONC 33.4 g/dL (33.2-36.2); MEAN PLATELET VOLUME 8.6 fL (7.4-10.4); MONOCYTES % (AUTO) 9 % (2-9); NEUTROPHILS # (AUTO) 8.13 x10^3/uL (1.8-6.8); NEUTROPHILS % (AUTO) 69 % (42-75); PLATELET COUNT 418 x10^3/uL (130-400); RED BLOOD COUNT 4.46 x10^6/uL (4.38-5.82); RED CELL DISTRIBUTION WIDTH 14.1 % (9.4-14.8)
[2020-04-02 06:13] LABS: ANION GAP 8 mmol/L (5-15); CALCIUM 8.8 mg/dL (8.5-10.1); CHLORIDE 105 mmol/L (98-107)
[2020-04-02 06:14] LABS: CREATININE 0.84 mg/dL (0.7-1.3)
[2020-04-02 06:38] VITALS: BP 95/59
[2020-04-02] MEDS: FUROSEMIDE 40 MG/4 ML IV SCH (07:51)
[2020-04-02] MEDS: SPIRONOLACTONE 25 MG TABLET PO SCH (07:52)
[2020-04-02] MEDS: RIVAROXABAN 20 MG TABLET PO SCH (07:52)
[2020-04-02] MEDS: LISINOPRIL 5 MG TABLET PO SCH ×2 (07:52→21:07)
[2020-04-02] MEDS: METOPROLOL SUCCINATE 25 MG TAB.ER.24H PO SCH ×2 (07:52→22:02)
[2020-04-02] MEDS: AMIODARONE 200 MG TABLET PO SCH ×2 (07:53→21:07)
[2020-04-02] MEDS: GUAIFENESIN/DM 200-20MG, 10ML UDC PO PRN (07:53)
[2020-04-02] MEDS: BISACODYL 10 MG SUPP PR SCH (09:00)
[2020-04-02] MEDS: LIDODERM REMOVE PATCH NOTE XX SCH (09:00)
[2020-04-02] MEDS: POLYETHYLENE GLYCOL 17 GM PACKET PO SCH (09:00)
[2020-04-02] MEDS: SENNA/DOCUSATE TABLET PO SCH (09:00)
[2020-04-02] MEDS: NICOTINE 21 MG/24 HR PATCH.TD24 TD SCH (09:00)
[2020-04-02] MEDS ORDERED: PROPOFOL 10 MG/ML, 20ML ONE (11:16)
[2020-04-02 12:38] VITALS: BP 100/68
[2020-04-02] MEDS: LIDODERM 5% PATCH TD SCH (16:49)
[2020-04-02 18:32] VITALS: BP 98/65
[2020-04-02 21:05] VITALS: BP 98/67
[2020-04-02] MEDS: TEMAZEPAM 15 MG CAPSULE PO PRN (21:08)
[2020-04-02 22:01] VITALS: BP 101/70
[2020-04-03 01:41] VITALS: BP 95/62
[2020-04-03 06:38] LABS: BASOPHILS % (AUTO) 1 % (0-1); EOSINOPHILS # (AUTO) 0.21 x10^3/uL (0-0.4); EOSINOPHILS % (AUTO) 2 % (1-7); LYMPHOCYTES # (AUTO) 2.62 x10^3/uL (1-3.4); LYMPHOCYTES % (AUTO) 22 % (22-44); MD NO; MEAN CORPUSCULAR HEMOGLOBIN 32.7 pg (27.5-34.5); MEAN CORPUSCULAR HGB CONC 33.3 g/dL (33.2-36.2); MEAN PLATELET VOLUME 8.4 fL (7.4-10.4); MONOCYTES # (AUTO) 1.08 x10^3/uL (0.2-0.8); MONOCYTES % (AUTO) 9 % (2-9); NEUTROPHILS % (AUTO) 66 % (42-75); PLATELET COUNT 481 x10^3/uL (130-400); RED BLOOD COUNT 4.42 x10^6/uL (4.38-5.82); RED CELL DISTRIBUTION WIDTH 14.3 % (9.4-14.8)
[2020-04-03 06:47] LABS: ANION GAP 4 mmol/L (5-15); CALCIUM 8.7 mg/dL (8.5-10.1); CHLORIDE 105 mmol/L (98-107); CREATININE 0.93 mg/dL (0.7-1.3)
[2020-04-03 08:01] VITALS: BP 94/61
[2020-04-03] MEDS: FUROSEMIDE 40 MG/4 ML IV SCH (08:11)
[2020-04-03] MEDS: RIVAROXABAN 20 MG TABLET PO SCH (08:11)
[2020-04-03] MEDS: POLYETHYLENE GLYCOL 17 GM PACKET PO SCH (08:12)
[2020-04-03] MEDS: AMIODARONE 200 MG TABLET PO SCH (08:12)
[2020-04-03] MEDS: METOPROLOL SUCCINATE 25 MG TAB.ER.24H PO SCH (08:12)
[2020-04-03] MEDS: SPIRONOLACTONE 25 MG TABLET PO SCH (08:12)
[2020-04-03] MEDS: BISACODYL 10 MG SUPP PR SCH (08:13)
[2020-04-03] MEDS: LISINOPRIL 5 MG TABLET PO SCH (08:13)
[2020-04-03] MEDS: SENNA/DOCUSATE TABLET PO SCH (08:13)
[2020-04-03] MEDS: NICOTINE 21 MG/24 HR PATCH.TD24 TD SCH (08:14)
[2020-04-03] MEDS: LIDODERM REMOVE PATCH NOTE XX SCH (08:14)
[2020-04-03] MEDS: ACETAMINOPHEN 325 MG TABLET PO PRN (11:15)
[2020-04-03] MEDS ORDERED: LISI5TAB7 PO ×2 (12:10)
[2020-04-03] MEDS ORDERED: ERGO500017 PO (12:10)
[2020-04-03] MEDS ORDERED: FURO40TA6 PO (12:10)
[2020-04-03] MEDS ORDERED: METO25TA91 PO (12:10)
[2020-04-03] MEDS ORDERED: AMIO200T42 PO (12:10)
[2020-04-04] MEDS ORDERED: FUROSEMIDE 40 MG TABLET PO SCH (09:00)
[2020-06-12] MEDS ORDERED: DOXY100T PO (13:06)
[2020-06-12] MEDS ORDERED: ATOR-2 PO (13:06)
[2020-06-12] MEDS ORDERED: METH4TAB2 PO (13:06)
[2020-06-12] MEDS ORDERED: CHLO25CA9 PO ×4 (13:56)
[2020-06-12] MEDS ORDERED: GABA300C PO (13:56)
== END 2020-04-03 13:55 | disposition home or self-care (01) | DRG 208 ==
LOC: ED 02:24 → EDIP 03:20 → 5SO 04:09 → CCU 03-26 05:00 → 4WST 03-29 10:00 → DCLOUNGE 04-03 13:27
PROVIDERS: ADMIT Internal Medicine; ATTEND Hospitalist
PROC: 5A1945Z Respiratory Ventilation, 24-96 Consecutive Hours (ICD-10-PCS; 2020-03-27)
PROC: 5A2204Z Restoration of Cardiac Rhythm, Single (ICD-10-PCS; 2020-04-02)
PROC: 0BH17EZ Insertion of Endotracheal Airway into Trachea, Via Natural or Artificial Opening (ICD-10-PCS; principal; 2020-04-02 09:30)
DX: J96.01 Acute respiratory failure with hypoxia (principal); I50.43 Acute on chronic combined systolic (congestive) and diastolic (congestive) heart failure; G93.41 Metabolic encephalopathy; F10.231 Alcohol dependence with withdrawal delirium; I42.9 Cardiomyopathy, unspecified; D68.69 Other thrombophilia; I47.2 Ventricular tachycardia; Z99.11 Dependence on respirator [ventilator] status; I48.0 Paroxysmal atrial fibrillation; F17.200 Nicotine dependence, unspecified, uncomplicated; D72.829 Elevated white blood cell count, unspecified; I25.10 Atherosclerotic heart disease of native coronary artery without angina pectoris; E87.6 Hypokalemia; D64.9 Anemia, unspecified; I49.3 Ventricular premature depolarization; I50.82 Biventricular heart failure; G89.29 Other chronic pain; I95.9 Hypotension, unspecified; Z63.5 Disruption of family by separation and divorce; Z79.01 Long term (current) use of anticoagulants; Z80.9 Family history of malignant neoplasm, unspecified
CPT/HCPCS: 36415; 36600; 71045; 74018; 80048; 80053; 80307; 82306; 82607; 82803; 83735; 83880; 84100; 84443; 84478; 84484; 85025; 87070; 87081; 87205; 92960; 93005; 93306; 94002; 94003; 96374; 99285; G0378; J1885; J1940; J2250; J2405; J2560; J2704; J3411; J3486; J7060; C9113; J0282; J1160; J1630; J2060; J7040

== ENCOUNTER 2020-05-21 12:27 | Emergency (ER) | payer OTHER ==
[~2020-05-21] VITALS: Ht 188 cm; Wt 100.5 kg
[~2020-05-21 12:27] MED LIST changes: +AMIO200T42 PO; +ERGO500017 PO; +METO25TA91 PO; +PANT40TA5 PO; -PANT40TA6 PO
--- NOTE | 2020-05-21 12:43 | NUR ---
PT CAME IN CO OF CP THAT STARTED 2 DAYS AGO. PT HAS HX OF CHF. SAYS "I ALWAYS LIVE WITH PAIN MY CHEST BUT IN THE PAST 2 DAYS ITS BEEN GETTING WORSE. DEEP BREATHS ARE PAINFUL. I RFAN OUT OF A COUPLE OF MY MEDS". PT STATES HE HAS BEEN COMPLIANT WITH MEDS. PT RESTING IN [facility]. EKG COMPLETE. CONNECTED TO MONITORING EQUIPMENT.
[2020-05-21] MEDS ORDERED: ASPIRIN 81 MG TABLET CHEW PO ONE (13:00)
--- NOTE | 2020-05-21 13:07 | NUR ---
BEDSIDE REPORT FROM ALFREDO BARRIOS, PT ON MONITOR WITH CALL LIGHT WITHIN REACH. PT MEDICATED PER DEC. AWAITING LAB AND RAD
[2020-05-21] MEDS ORDERED: ASPIRIN 81 MG TABLET CHEW ONE (13:19)
--- NOTE | 2020-05-21 13:24 | NUR ---
PT STATES HIS CHEST PAIN IS GETTING WORSE, REQUESTING NITRO. MD NOTIFIED. NO NITRO AT THIS TIME PER MD, WILL EVALUATE TROPONIN LEVEL FIRST.
[2020-05-21 13:29] LABS: BASOPHILS # (AUTO) 0.05 x10^3/uL (0-0.1); BASOPHILS % (AUTO) 1 % (0-1); EOSINOPHILS # (AUTO) 0.03 x10^3/uL (0-0.4); EOSINOPHILS % (AUTO) 0 % (1-7); LYMPHOCYTES # (AUTO) 2.28 x10^3/uL (1-3.4); LYMPHOCYTES % (AUTO) 28 % (22-44); MD NO; MEAN CORPUSCULAR HEMOGLOBIN 33.2 pg (27.5-34.5); MEAN CORPUSCULAR HGB CONC 33.8 g/dL (33.2-36.2); MEAN CORPUSCULAR VOLUME 98.2 fL (81-97); MEAN PLATELET VOLUME 8.3 fL (7.4-10.4); MONOCYTES # (AUTO) 0.64 x10^3/uL (0.2-0.8); MONOCYTES % (AUTO) 8 % (2-9); NEUTROPHILS # (AUTO) 5.18 x10^3/uL (1.8-6.8); NEUTROPHILS % (AUTO) 63 % (42-75); PLATELET COUNT 229 x10^3/uL (130-400); RED BLOOD COUNT 4.85 x10^6/uL (4.38-5.82); RED CELL DISTRIBUTION WIDTH 15.6 % (9.4-14.8)
[2020-05-21 13:39] LABS: ALBUMIN 3.9 g/dL (3.4-5.0); ANION GAP 10 mmol/L (5-15); CALCIUM 8.7 mg/dL (8.5-10.1); CHLORIDE 104 mmol/L (98-107)
[2020-05-21 13:45] LABS: ALANINE AMINOTRANSFERASE 44 U/L (12-78); ALKALINE PHOSPHATASE 55 U/L (45-117); BILIRUBIN,TOTAL 1.5 mg/dL (0.2-1.0); CREATININE 1.03 mg/dL (0.7-1.3); TOTAL PROTEIN 7.2 g/dL (6.4-8.2); TROPONIN I < 0.015 ng/mL (0.000-0.045)
[2020-05-21 14:01] VITALS: BP 115/76
--- NOTE | 2020-05-21 14:02 | NUR ---
TASK RN: PT RESTING IN [facility]. PT STATES THAT CHEST PAIN "IS GETTING WORSE", RADIATING TO LEFT SHOULDER. PT REQUESTING PAIN MEDICATIONS. ERP AWARE. VITAL SIGNS STABLE. PT PWD. DENIES ASSOCIATED NAUSEA/DIAPHORESIS. NSR ON MONITOR.
[2020-05-21] MEDS ORDERED: KETOROLAC 30 MG/1 ML ONE (14:18)
--- NOTE | 2020-05-21 14:26 | NUR ---
TASK RN: PT MEDICATED PER EMAR FOR PAIN. POC IS DC. PT OFF MONITORING AND ASKED TO DRESS SELF. AWAITING DC INSTRUCTIONS.
[2020-05-21] MEDS ORDERED: KETOROLAC 30 MG/1 ML IM ONE (14:30)
--- NOTE | 2020-05-21 14:41 | NUR ---
TASK RN: PT REPORTS IMPROVED S/S WITH MEDICATIONS. DC EDUCATION PROVIDED, PT DEMONSTRATES UNDERSTANDING. PT AMBULATED STEADILY TO DC WITH RN
== END 2020-05-21 14:43 | disposition home or self-care (01) ==
LOC: ED 13:01
DX: R07.89 Other chest pain (principal); R06.02 Shortness of breath; R94.31 Abnormal electrocardiogram [ECG] [EKG]; Z72.9 Problem related to lifestyle, unspecified; Z76.0 Encounter for issue of repeat prescription; I48.91 Unspecified atrial fibrillation; I50.9 Heart failure, unspecified; F17.200 Nicotine dependence, unspecified, uncomplicated
CPT/HCPCS: 36415; 71045; 80053; 83880; 84484; 85025; 93005; 96372; 99285; J1885

== ENCOUNTER 2020-06-26 01:38 | Emergency (ER) | payer OTHER ==
[~2020-06-26] VITALS: Ht 185.4 cm; Wt 104.5 kg
[~2020-06-26 01:38] MED LIST changes: +ATOR-2 PO; +CHLO25CA9 PO; +DOXY100T PO; +GABA300C PO; +METH4TAB2 PO; -PANT40TA5 PO; +PANT40TA6 PO
--- NOTE | 2020-06-26 01:49 | NUR ---
Mela marshall in [facility] - 06/26/20 at 0216 by AVTAR ATTEMPTED TO CALL REPORT AT THIS TIME.
[2020-06-26] MEDS ORDERED: SODIUM CHLORIDE FLUSH 10ML SYR IVF ONE (02:00)
[2020-06-26] MEDS ORDERED: LORazepam 2 MG/ML, 1ML IVPush ONE (02:00)
[2020-06-26] MEDS ORDERED: ONDANSETRON 2MG/ML, 2ML IVPush ONE (02:00)
--- NOTE | 2020-06-26 02:00 | NUR ---
LATE ENTRY SUMMARY NOTE: PT IMMEDIATELY PLACED ON CARDIAC, BP AND O2 MONITORS. PT IN BED, POSITIONED TO COMFORT, ALL NEEDS MET AND GIVEN CALL LIGHT. BRIDGETTE WHILE PT WAS IN THIS RN'S CARE.
[2020-06-26] MEDS ORDERED: LORazepam 2 MG/ML, 1ML ONE (02:29)
[2020-06-26 02:30] LABS: MEAN CORPUSCULAR HEMOGLOBIN 33.5 pg (27.5-34.5); MEAN CORPUSCULAR HGB CONC 34.1 g/dL (33.2-36.2); MEAN CORPUSCULAR VOLUME 98.3 fL (81-97); MEAN PLATELET VOLUME 8.6 fL (7.4-10.4); PLATELET COUNT 177 x10^3/uL (130-400); RED BLOOD COUNT 4.71 x10^6/uL (4.38-5.82); RED CELL DISTRIBUTION WIDTH 15.8 % (9.4-14.8)
[2020-06-26 02:44] LABS: ALANINE AMINOTRANSFERASE 81 U/L (12-78); ALBUMIN 3.4 g/dL (3.4-5.0); ANION GAP 8 mmol/L (5-15); CALCIUM 9.3 mg/dL (8.5-10.1); CHLORIDE 106 mmol/L (98-107); CREATININE 0.85 mg/dL (0.7-1.3)
[2020-06-26] MEDS ORDERED: ONDANSETRON 2MG/ML, 2ML ONE (02:46)
[2020-06-26 02:48] LABS: ALKALINE PHOSPHATASE 56 U/L (45-117); BILIRUBIN,TOTAL 1.7 mg/dL (0.2-1.0); TOTAL PROTEIN 6.2 g/dL (6.4-8.2); TROPONIN I < 0.015 ng/mL (0.000-0.045)
[2020-06-26 02:52] VITALS: BP 101/71
[2020-06-26 03:12] LABS: MD YES
[2020-06-26 03:15] LABS: EOS#(MANUAL) 0.12 x10^3/uL (0.0-0.4); EOS% (MANUAL) 1 % (1-7); LYMPH#(MANUAL) 1.76 x10^3/uL (1-3.4); LYMPHS% (MANUAL) 15 % (22-44); MONOS#(MANUAL) 0.59 x10^3/uL (0.3-2.7); MONOS% (MANUAL) 5 % (2-9); SEG#(MANUAL) 9.24 x10^3/uL (1.8-6.8); SEGS% (MANUAL) 79 % (42-75)
[2020-06-26 03:16] LABS: <PLATELET ESTIMATE> ADEQUATE; <PLT MORPHOLOGY> NORMAL PLT MORPH; ANISOCYTOSIS 1+
--- NOTE | 2020-06-26 03:18 | NUR ---
ERP TO BEDSIDE.
[2020-06-26] MEDS ORDERED: POTASSIUM CHLORIDE 20 MEQ TAB.ER.PRT ONE (03:21)
[2020-06-26] MEDS ORDERED: POTASSIUM CHLORIDE 20 MEQ TAB.ER.PRT PO ONE (03:30)
--- NOTE | 2020-06-26 03:49 | NUR ---
Patient/Caregiver given discharge instructions and they have confirmed that they understand the instructions. Patient ambulatory with steady gait.
== END 2020-06-26 03:50 | disposition home or self-care (01) ==
LOC: ED 01:45
DX: R07.2 Precordial pain (principal); R11.2 Nausea with vomiting, unspecified; E87.6 Hypokalemia; R06.02 Shortness of breath; R00.0 Tachycardia, unspecified; Z76.0 Encounter for issue of repeat prescription; I50.9 Heart failure, unspecified
CPT/HCPCS: 36415; 71045; 80053; 80307; 83690; 83880; 84484; 85025; 93005; 96374; 96375; 99285; J2060; J2405

== ENCOUNTER 2020-06-30 05:25 | Inpatient (IN) | payer OTHER ==
[~2020-06-30] VITALS: Ht 182.9 cm; Wt 103.0 kg
--- NOTE | 2020-06-30 05:47 | NUR ---
ED provider at bedside
[2020-06-30] MEDS ORDERED: LORazepam 2 MG/ML, 1ML IVPush PRN (06:00)
[2020-06-30] MEDS ORDERED: ASPIRIN 81 MG TABLET CHEW ONE (06:00)
[2020-06-30] MEDS ORDERED: THIAMINE 100MG TABLET PO ONE (06:00)
[2020-06-30] MEDS ORDERED: THIAMINE 100MG TABLET ONE (06:00)
[2020-06-30] MEDS ORDERED: LORazepam 1MG TABLET ONE (06:00)
[2020-06-30] MEDS ORDERED: ASPIRIN 81 MG TABLET CHEW PO ONE (06:00)
[2020-06-30] MEDS ORDERED: SODIUM CHLORIDE FLUSH 10ML SYR IVF ONE (06:00)
[2020-06-30 06:22] LABS: BASOPHILS # (AUTO) 0.03 x10^3/uL (0-0.1); BASOPHILS % (AUTO) 0 % (0-1); EOSINOPHILS # (AUTO) 0.11 x10^3/uL (0-0.4); EOSINOPHILS % (AUTO) 1 % (1-7); LYMPHOCYTES # (AUTO) 1.88 x10^3/uL (1-3.4); LYMPHOCYTES % (AUTO) 19 % (22-44); MD NO; MEAN CORPUSCULAR HEMOGLOBIN 33.6 pg (27.5-34.5); MEAN CORPUSCULAR HGB CONC 33.7 g/dL (33.2-36.2); MEAN PLATELET VOLUME 8.9 fL (7.4-10.4); MONOCYTES # (AUTO) 0.91 x10^3/uL (0.2-0.8); MONOCYTES % (AUTO) 9 % (2-9); NEUTROPHILS # (AUTO) 6.86 x10^3/uL (1.8-6.8); NEUTROPHILS % (AUTO) 70 % (42-75); PLATELET COUNT 220 x10^3/uL (130-400); RED BLOOD COUNT 4.66 x10^6/uL (4.38-5.82); RED CELL DISTRIBUTION WIDTH 15.5 % (9.4-14.8)
[2020-06-30 06:35] LABS: ALANINE AMINOTRANSFERASE 93 U/L (12-78); ALBUMIN 3.4 g/dL (3.4-5.0); ANION GAP 10 mmol/L (5-15); CALCIUM 8.7 mg/dL (8.5-10.1); CHLORIDE 106 mmol/L (98-107); CREATININE 1.02 mg/dL (0.7-1.3)
[2020-06-30 06:40] LABS: ALKALINE PHOSPHATASE 67 U/L (45-117); BILIRUBIN,TOTAL 1.3 mg/dL (0.2-1.0); TOTAL PROTEIN 6.9 g/dL (6.4-8.2); TROPONIN I < 0.015 ng/mL (0.000-0.045)
--- NOTE | 2020-06-30 06:46 | NUR ---
Took report from Thea Shetty RN, assume care at this time.
[2020-06-30] MEDS ORDERED: FUROSEMIDE 20 MG/2 ML ONE (06:50)
[2020-06-30] MEDS ORDERED: ONDANSETRON 2MG/ML, 2ML IVPush ONE (07:00)
[2020-06-30] MEDS ORDERED: ONDANSETRON 2MG/ML, 2ML ONE (07:00)
[2020-06-30] MEDS ORDERED: FUROSEMIDE 40 MG/4 ML IV ONE (07:00)
--- NOTE | 2020-06-30 08:38 | NUR ---
PT CALM IN BED WITH CONT SALES ACCOUNT MANAGER, SPO2, BP Q 30 MIN, SIDE RAILS UP X2, CALL LIGHT IN REACH. DENIES NAUSEA AT THIS TIME.
[2020-06-30] MEDS ORDERED: RIVAROXABAN 20 MG TABLET PO SCH (10:00)
[2020-06-30] MEDS ORDERED: LORazepam 1MG TABLET PO PRN ×4 (10:00)
[2020-06-30] MEDS ORDERED: PROMETHAZINE 25 MG/ML, 1ML IM PRN (10:00)
[2020-06-30] MEDS ORDERED: LORazepam 0.5MG TABLET PO PRN (10:00)
[2020-06-30] MEDS ORDERED: POLYETHYLENE GLYCOL 17 GM PACKET PO PRN (10:00)
[2020-06-30] MEDS ORDERED: MAGNESIUM SULFATE PMX 2GM/50ML 50 ML IV ONE (10:00)
[2020-06-30] MEDS ORDERED: ALUMINUM/MAG/SIMETHICONE 30 ML UDC PO PRN (10:00)
[2020-06-30] MEDS ORDERED: methylPREDNISolone SOD SUCC 125 MG/2 ML IVPush SCH (10:00)
[2020-06-30] MEDS ORDERED: MAGNESIUM SULFATE PMX 2GM/50ML 50 ML ONE (10:29)
[2020-06-30] MEDS ORDERED: methylPREDNISolone SOD SUCC 40 MG/ML ONE (10:29)
[2020-06-30] MEDS ORDERED: CHLORDIAZEPOXIDE 25 MG CAPSULE ONE (10:30)
[2020-06-30] MEDS ORDERED: POTASSIUM CHLORIDE 20 MEQ TAB.ER.PRT ONE (10:30)
[2020-06-30 10:31] LABS: BASOPHILS # (AUTO) 0.04 x10^3/uL (0-0.1); BASOPHILS % (AUTO) 0 % (0-1); EOSINOPHILS # (AUTO) 0.06 x10^3/uL (0-0.4); EOSINOPHILS % (AUTO) 1 % (1-7); LYMPHOCYTES # (AUTO) 1.74 x10^3/uL (1-3.4); LYMPHOCYTES % (AUTO) 17 % (22-44); MD NO; MEAN CORPUSCULAR HEMOGLOBIN 33.8 pg (27.5-34.5); MEAN CORPUSCULAR HGB CONC 34.1 g/dL (33.2-36.2); MONOCYTES # (AUTO) 1.15 x10^3/uL (0.2-0.8); MONOCYTES % (AUTO) 11 % (2-9); NEUTROPHILS # (AUTO) 7.53 x10^3/uL (1.8-6.8); NEUTROPHILS % (AUTO) 72 % (42-75); PLATELET COUNT 225 x10^3/uL (130-400); RED CELL DISTRIBUTION WIDTH 15.5 % (9.4-14.8)
[2020-06-30] MEDS ORDERED: AMIODARONE 200 MG TABLET ONE (10:31)
[2020-06-30] MEDS ORDERED: RIVAROXABAN 20 MG TABLET ONE (10:31)
[2020-06-30] MEDS: AMIODARONE 200 MG TABLET PO SCH ×2 (10:34→21:11)
[2020-06-30] MEDS: CHLORDIAZEPOXIDE 25 MG CAPSULE PO SCH ×3 (10:35→21:11)
[2020-06-30] MEDS: POTASSIUM CHLORIDE 20 MEQ TAB.ER.PRT PO SCH (10:35)
--- NOTE | 2020-06-30 10:42 | NUR ---
PHARM REQUEST SENT TO LAB. PT REPORTS BACK PAIN, REPOSITIONED FOR COMFORT
[2020-06-30 10:45] LABS: TROPONIN I < 0.015 ng/mL (0.000-0.045)
[2020-06-30] MEDS: SPIRONOLACTONE 25 MG TABLET PO SCH (11:42)
--- NOTE | 2020-06-30 12:04 | NUR ---
PT ON HOSPITAL BED, REPORTS HIS BACK FEEL BETTER. 850 URINE OUT TOTAL.PT PUT ON 2L NC FOR SPO2 89% PT NOW AT 94%
--- NOTE | 2020-06-30 13:30 | NUR ---
Mela marshall in [facility] - 06/30/20 at 1330 by CELINA TASK RN: REPORT TO SOPHIE GRIJALVA ON FLOOR. PT PREPARED FOR TRANSPORT
--- NOTE | 2020-06-30 13:31 | NUR ---
TASK RN: REPORT TO SOPHIE GRIJALVA ON FLOOR. PT PREPARED FOR TRANSPORT
[2020-06-30 13:49] VITALS: BP 125/89
[2020-06-30] MEDS: MULTIVITAMINS/MINERALS TABLET PO SCH (14:04)
[2020-06-30] MEDS: methylPREDNISolone SOD SUCC 40 MG/ML IVPush SCH ×2 (15:43→21:11)
[2020-06-30] MEDS ORDERED: MELATONIN 5 MG TABLET PO PRN (16:00)
[2020-06-30] MEDS: METHOCARBAMOL 500 MG TABLET PO PRN (16:22)
[2020-06-30] MEDS: FUROSEMIDE 40 MG/4 ML IV SCH (16:23)
[2020-06-30 16:31] LABS: TROPONIN I < 0.015 ng/mL (0.000-0.045)
[2020-06-30] MEDS: METOPROLOL TARTRATE 25 MG TAB PO SCH (17:12)
[2020-06-30 19:05] VITALS: BP 112/80
[2020-06-30] MEDS: THIAMINE 100MG TABLET PO SCH (21:11)
[2020-07-01 00:54] VITALS: BP 101/74
[2020-07-01] MEDS: methylPREDNISolone SOD SUCC 40 MG/ML IVPush SCH ×4 (03:49→21:59)
[2020-07-01] MEDS: CHLORDIAZEPOXIDE 25 MG CAPSULE PO SCH (03:50)
[2020-07-01 05:11] LABS: ALBUMIN 3.3 g/dL (3.4-5.0); CHLORIDE 103 mmol/L (98-107)
[2020-07-01 05:16] LABS: ALANINE AMINOTRANSFERASE 71 U/L (12-78); ALKALINE PHOSPHATASE 60 U/L (45-117); ANION GAP 8 mmol/L (5-15); BILIRUBIN,TOTAL 1.7 mg/dL (0.2-1.0); CALCIUM 8.8 mg/dL (8.5-10.1); CREATININE 0.91 mg/dL (0.7-1.3); TOTAL PROTEIN 6.8 g/dL (6.4-8.2)
[2020-07-01] MEDS: METOPROLOL TARTRATE 25 MG TAB PO SCH ×2 (06:01→17:03)
[2020-07-01 08:24] VITALS: BP 106/80
[2020-07-01] MEDS: POTASSIUM CHLORIDE 20 MEQ TAB.ER.PRT PO SCH (08:30)
[2020-07-01] MEDS: FUROSEMIDE 40 MG/4 ML IV SCH ×2 (08:30→17:00)
[2020-07-01] MEDS: MULTIVITAMINS/MINERALS TABLET PO SCH (08:30)
[2020-07-01] MEDS: SPIRONOLACTONE 25 MG TABLET PO SCH (08:30)
[2020-07-01] MEDS: MAGNESIUM OXIDE 400 MG TABLET PO SCH (08:30)
[2020-07-01] MEDS: AMIODARONE 200 MG TABLET PO SCH ×2 (08:31→20:06)
[2020-07-01] MEDS: FOLIC ACID 1 MG TABLET PO SCH (08:31)
[2020-07-01] MEDS: LISINOPRIL 5 MG TABLET PO SCH (08:31)
[2020-07-01] MEDS: THIAMINE 100MG TABLET PO SCH ×2 (08:39→20:06)
[2020-07-01] MEDS: METHOCARBAMOL 500 MG TABLET PO PRN ×2 (09:25→20:05)
[2020-07-01] MEDS ORDERED: RIVAROXABAN 20 MG TABLET PO SCH (12:00)
[2020-07-01 14:05] VITALS: BP_SYST 99
[2020-07-01 16:49] VITALS: BP 94/64
[2020-07-01 19:06] VITALS: BP 101/71
[2020-07-02 00:54] VITALS: BP 97/75
[2020-07-02] MEDS: methylPREDNISolone SOD SUCC 40 MG/ML IVPush SCH ×2 (03:51→10:00)
[2020-07-02] MEDS: ALBUTEROL HFA 90 MCG/SPRAY INH PRN ×2 (04:08→08:40)
[2020-07-02 05:32] VITALS: BP 96/69
[2020-07-02] MEDS: METOPROLOL TARTRATE 25 MG TAB PO SCH (05:34)
[2020-07-02 06:36] LABS: ANION GAP 7 mmol/L (5-15); CALCIUM 8.9 mg/dL (8.5-10.1); CHLORIDE 104 mmol/L (98-107); CREATININE 0.93 mg/dL (0.7-1.3)
[2020-07-02 07:26] VITALS: BP 96/69
[2020-07-02 07:51] VITALS: BP 102/74
[2020-07-02] MEDS: FOLIC ACID 1 MG TABLET PO SCH (07:52)
[2020-07-02] MEDS: MAGNESIUM OXIDE 400 MG TABLET PO SCH (07:52)
[2020-07-02] MEDS: THIAMINE 100MG TABLET PO SCH (07:52)
[2020-07-02] MEDS: FUROSEMIDE 40 MG/4 ML IV SCH (07:52)
[2020-07-02] MEDS: MULTIVITAMINS/MINERALS TABLET PO SCH (07:52)
[2020-07-02] MEDS: POTASSIUM CHLORIDE 20 MEQ TAB.ER.PRT PO SCH (07:52)
[2020-07-02] MEDS: AMIODARONE 200 MG TABLET PO SCH (07:53)
[2020-07-02] MEDS: LISINOPRIL 5 MG TABLET PO SCH (07:56)
[2020-07-02] MEDS ORDERED: SPIRONOLACTONE 25 MG TABLET PO SCH (09:00)
[2020-07-02] MEDS ORDERED: CARV6.25 PO ×2 (09:04→09:29)
[2020-07-02] MEDS ORDERED: AMIO100T4 PO (09:10)
== END 2020-07-02 10:46 | disposition home or self-care (01) | DRG 190 ==
LOC: ED 08:41 → EDIP 08:59 → 4EST 13:46 → DCLOUNGE 07-02 10:40
PROVIDERS: ADMIT Hospitalist; ATTEND Internal Medicine
DX: J44.1 Chronic obstructive pulmonary disease with (acute) exacerbation (principal); I50.43 Acute on chronic combined systolic (congestive) and diastolic (congestive) heart failure; F10.231 Alcohol dependence with withdrawal delirium; I48.20 Chronic atrial fibrillation, unspecified; D68.69 Other thrombophilia; E87.1 Hypo-osmolality and hyponatremia; I42.0 Dilated cardiomyopathy; I11.0 Hypertensive heart disease with heart failure; E83.42 Hypomagnesemia; R94.31 Abnormal electrocardiogram [ECG] [EKG]; E87.6 Hypokalemia; E88.09 Other disorders of plasma-protein metabolism, not elsewhere classified; Z20.828 Contact with and (suspected) exposure to other viral communicable diseases; K70.10 Alcoholic hepatitis without ascites; F12.90 Cannabis use, unspecified, uncomplicated; F17.210 Nicotine dependence, cigarettes, uncomplicated; F41.9 Anxiety disorder, unspecified; Z80.3 Family history of malignant neoplasm of breast; Z79.01 Long term (current) use of anticoagulants; Z91.19 Patient's noncompliance with other medical treatment and regimen
CPT/HCPCS: 36415; 71045; 80048; 80053; 82962; 83605; 83690; 83735; 83880; 84100; 84484; 85025; 93005; 96374; 96375; 99291; G0378; J1940; J2405; J2060; J2920; J2930; J3475